=== PATIENT | female | born 1955 | race Caucasian/White ===

== ENCOUNTER 2018-11-02 16:28 | Emergency (ER) | payer BC ==
[2018-11-02] MEDS ORDERED: LEVALBUTEROL 1.25 MG/3 ML NEB ONE (18:41)
[2018-11-02] MEDS ORDERED: METHYLPREDNISOLONE 125 MG INJ ONE (18:41)
[2018-11-02 19:09] LABS: Absolute Lymphocytes (CBC) 2.1 K/uL (0.7-4.9); Absolute Monocytes 0.5 K/uL (0.1-1.3); Absolute Neutrophil 5.1 K/uL (1.8-8.0); Basophils % 0.9 % (0-1.3); Eosinophils % 2.6 % (0-4.4); Hematocrit 52.8 % (36.0-45.0); Lymphocytes % 26.4 % (15.3-44.8); MPV 10.4 fL (7.6-11.3); Monocytes % 6.2 % (3.3-12.3); RBC Red Blood Cell Count 5.63 M/uL (3.86-4.86)
[2018-11-02 19:10] LABS: ALT/SGPT 174 U/L (12-78); AST/SGOT 159 U/L (15-37); Albumin 3.4 g/dL (3.4-5.0); Alkaline Phosphatase 123 U/L (45-117); BUN Blood Urea Nitrogen 20 mg/dL (7-18); Bicarbonate 24 mmol/L (21-32); Bilirubin Direct 0.2 mg/dL (0-0.2); Bilirubin Total 0.5 mg/dL (0.2-1.0); Glucose Level 150 mg/dL (74-106); Magnesium 2.1 mg/dL (1.8-2.4); NT PRO-BNP 908 pg/mL (<125); Potassium 4.7 mmol/L (3.5-5.1); Protein, Total 8.4 g/dL (6.4-8.2); Protime INR 1.08; Sodium Level 137 mmol/L (136-145); Troponin (Emerg Dept Use Only) < 0.02 ng/mL (0.0-0.045)
--- NOTE | 2018-11-02 19:44 | RAD REPORT ---
EXAM DESCRIPTION: RADChest Pa And Lat (2 Views)11/02/2018 7:23 pm CLINICAL HISTORY: Cough COMPARISON: December 2017 FINDINGS: Extensive bilateral pulmonary opacities are unchanged having the appearance of pulmonary fibrosis. The heart is borderline enlarged
--- NOTE | 2018-11-02 20:26 | EDPHYS ---
Physician Documentation [facility] Name: Osmani Esposito Age: 63 yrs Sex: Female : 1955 Arrival Date: 11/02/2018 Time: 16:30 Bed 13 Private MD: ED Physician Matt Gonzales HPI: 11/02 18:09 This 63 yrs old Female presents to ER via Ambulatory with complaints of jmm Breathing Difficulty. 18:09 The patient has shortness of breath at rest. Onset: The symptoms/episode began/occurred jmm gradually, 2 day(s) ago. Duration: The symptoms are continuous, and are steadily getting worse. The patient's shortness of breath is aggravated by supine position, is alleviated by nothing. Associated signs and symptoms: Pertinent positives: non-productive cough, Pertinent negatives: chest pain. This is a 63 year old female with a history of COPD that presents to the ED with complaints of shortness of breath, cough. Denies fever. Denies productive cough. Patient has used albuterol at home with no relief. . Historical: - Allergies: 16:34 No Known Allergies; sv - PMHx: 16:34 COPD; sv - PSHx: 16:34 ; ankle surgery; Shoulder surgery; sv - Immunization history:: Adult Immunizations up to date. - Social history:: Smoking status: Patient uses tobacco products, smokes one pack cigarettes per day. - Ebola Screening: : Patient negative for fever greater than or equal to 101.5 degrees Fahrenheit, and additional compatible Ebola Virus Disease symptoms. ROS: 18:09 Constitutional: Negative for fever, chills, and weight loss, Cardiovascular: Negative jmm for chest pain, palpitations, and edema. 18:09 Respiratory: Positive for cough, shortness of breath, wheezing. 18:09 All other systems are negative. Exam: 18:09 Constitutional: This is a well developed, well nourished patient who is awake, alert, jmm and in no acute distress. Head/Face: atraumatic. Eyes: EOMI, no conjunctival erythema appreciated ENT: Moist Mucus Membranes Neck: Trachea midline, Supple Chest/axilla: Normal chest wall appearance and motion. Cardiovascular: Regular rate and rhythm. No edema appreciated 18:09 Back: Normal ROM Skin: General appearance color normal MS/ Extremity: Moves all extremities, no obvious deformities appreciated, no edema noted to the lower extremities Neuro: Awake and alert, normal gait Psych: Behavior is normal, Mood is normal, Patient is cooperative and pleasant 18:09 Respiratory: mild respiratory distress is noted, Respirations: labored breathing, that is mild, Breath sounds: wheezing: is heard diffusely. Vital Signs: 16:34 BP 138 / 106; Pulse 101; Resp 24; Temp 97; Pulse Ox 94% ; Weight 90.72 kg; Height 5 ft. sv 4 in. (162.56 cm); 18:00 BP 135 / 106; Pulse 102; Resp 18; Pulse Ox 98% on R/A; Pain 0/10; rb1 19:00 BP 133 / 91; Pulse 115; Resp 22; Pulse Ox 98% on R/A; rb1 20:00 BP 152 / 82; Pulse 90; Resp 20; Pulse Ox 91% on R/A; jb4 21:00 BP 148 / 80; Pulse 109; Resp 18; Pulse Ox 94% ; jb4 16:34 Body Mass Index 34.33 (90.72 kg, 162.56 cm) sv MDM: 18:09 Patient medically screened. [facility] 20:24 Data reviewed: vital signs, nurses notes. [facility] 21:00 ED course: Patient states that she feels much better in the ED. Patient's o2 stat was [facility] around 90%. I discussed with the patient the need for observation along with steroids due to this. Patient declined admission. Dr. Kovacs then evaluated the patient and also recommended admission. Patient again declined. Patient appears to make rational decisions. Patient was otherwise given strict return precautions. Patient understood. . 11/02 18:10 Order name: Basic Metabolic Panel; Complete Time: 19:19 [facility] 11/02 18:10 Order name: CBC with Diff; Complete Time: 19:19 [facility] 11/02 18:10 Order name: LFT's; Complete Time: 19:19 [facility] 11/02 18:10 Order name: Magnesium; Complete Time: 19:19 [facility] 11/02 18:10 Order name: NT PRO-BNP; Complete Time: 19:19 [facility] 11/02 18:10 Order name: PT-INR; Complete Time: 19:19 [facility] 11/02 17:16 Order name: Chest Pa And Lat (2 Views) XRAY; Complete Time: 19:51 snw 11/02 18:10 Order name: Troponin (emerg Dept Use Only); Complete Time: 19:19 [facility] 11/02 18:10 Order name: EKG; Complete Time: 18:11 [facility] 11/02 18:10 Order name: Cardiac monitoring; Complete Time: 18:44 [facility] 11/02 18:10 Order name: Flu; Complete Time: 19:19 [facility] 11/02 18:10 Order name: EKG - Nurse/Tech; Complete Time: 18:44 [facility] 11/02 18:10 Order name: IV Saline Lock; Complete Time: 18:44 [facility] 11/02 18:10 Order name: Labs collected and sent; Complete Time: 18:44 [facility] 11/02 18:10 Order name: O2 Per Protocol; Complete Time: 18:44 [facility] 11/02 18:10 Order name: O2 Sat Monitoring; Complete Time: 18:44 [facility] Administered Medications: 18:30 Drug: Xopenex (3) 1.25 mg Route: Inhalation; rb1 19:00 Follow up: Response: No adverse reaction; Marked relief of symptoms rb1 18:30 Drug: SOLU-Medrol 125 mg Route: IVP; Site: right antecubital; rb1 18:45 Follow up: Response: No adverse reaction rb1 20:59 Drug: Ipratropium Aerosol 0.5 mg Route: Inhalation; jb4 21:13 Follow up: Response: No adverse reaction jb4 Disposition: 11/02/18 21:15 Patient has left against medical advice. - Patients states they are going to Home. - Condition is Stable. Addendum: 11/04/2018 19:46 Co-signature as Attending Physician, Matt Gonzales MD. r n Signatures: Dispatcher [employer] Radha Rangel RN RN Leoncio Porras PA PA jmm Nieto, Roman, MD MD rn Barber, Rebecca, RN RN rb1 Zia Tran RN RN jb4 Corrections: (The following items were deleted from the chart) 11/02 20:39 20:26 11/02/2018 20:26 Discharged to Home. Impression: Chronic obstructive pulmonary jmm disease with (acute) exacerbation. Condition is Stable. Forms are Medication Reconciliation Form, Thank You Letter, Antibiotic Education, Prescription Opioid Use. Follow up: Private Physician; When: 2 - 3 days; Reason: Recheck today's complaints, Continuance of care, Re-evaluation by your physician. eugenio
--- NOTE | 2018-11-02 20:26 | ER ---
Nurse's Notes [facility] Name: Osmani Esposito Age: 63 yrs Sex: Female : 1955 Arrival Date: 11/02/2018 Time: 16:30 Bed 13 Private MD: Diagnosis: Presentation: 11/02 16:33 Presenting complaint: Patient states: SOB over the last couple of days and has sv increased with use on inhalers. Hx COPD. Transition of care: patient was not received from another setting of care. Onset of symptoms was October 31, 2018. Care prior to arrival: None. 16:33 Method Of Arrival: Ambulatory sv 16:33 Acuity: AMADA 3 sv 18:00 Risk Assessment: Do you want to hurt yourself or someone else? Patient reports no rb1 desire to harm self or others. Initial Sepsis Screen: Does the patient meet any 2 criteria? No. Patient's initial sepsis screen is negative. Does the patient have a suspected source of infection? No. Patient's initial sepsis screen is negative. Triage Assessment: 18:00 Respiratory: Onset: The symptoms/episode began/occurred gradually, the patient has mild rb1 shortness of breath. Historical: - Allergies: 16:34 No Known Allergies; sv - PMHx: 16:34 COPD; sv - PSHx: 16:34 ; ankle surgery; Shoulder surgery; sv - Immunization history:: Adult Immunizations up to date. - Social history:: Smoking status: Patient uses tobacco products, smokes one pack cigarettes per day. - Ebola Screening: : Patient negative for fever greater than or equal to 101.5 degrees Fahrenheit, and additional compatible Ebola Virus Disease symptoms. Screenin:00 Abuse screen: Denies threats or abuse. Nutritional screening: No deficits noted. rb1 Tuberculosis screening: No symptoms or risk factors identified. Fall Risk None identified. Assessment: 18:00 General: Appears in no apparent distress. comfortable, obese, Behavior is calm, rb1 cooperative, Denies fever. Pain: Denies pain. Neuro: Level of Consciousness is awake, alert, obeys commands, Oriented to person, place, time, situation. Cardiovascular: Reports nausea, palpitations, shortness of breath, Capillary refill < 3 seconds is brisk in bilateral fingers Rhythm is regular. Respiratory: Airway is patent Respiratory effort is even, unlabored, Respiratory pattern is regular, symmetrical. GI: Reports nausea. : No signs and/or symptoms were reported regarding the genitourinary system. Derm: Skin is pink, warm \T\ dry. 19:00 Reassessment: Patient appears in no apparent distress at this time. Patient and/or jb4 family updated on plan of care and expected duration. Pain level reassessed. Patient is alert, oriented x 3, equal unlabored respirations, skin warm/dry/pink. 20:00 Reassessment: Patient appears in no apparent distress at this time. Patient and/or jb4 family updated on plan of care and expected duration. Pain level reassessed. Patient is alert, oriented x 3, equal unlabored respirations, skin warm/dry/pink. 21:00 Reassessment: Patient appears in no apparent distress at this time. Patient and/or jb4 family updated on plan of care and expected duration. Pain level reassessed. Patient is alert, oriented x 3, equal unlabored respirations, skin warm/dry/pink. 21:10 General: PT left ED AMA with no s/s or distress or pain noted. Ambulatory A\T\Ox4, jb4 walking to the lobby to wait for here ride.. Vital Signs: 16:34 BP 138 / 106; Pulse 101; Resp 24; Temp 97; Pulse Ox 94% ; Weight 90.72 kg; Height 5 ft. sv 4 in. (162.56 cm); 18:00 BP 135 / 106; Pulse 102; Resp 18; Pulse Ox 98% on R/A; Pain 0/10; rb1 19:00 BP 133 / 91; Pulse 115; Resp 22; Pulse Ox 98% on R/A; rb1 20:00 BP 152 / 82; Pulse 90; Resp 20; Pulse Ox 91% on R/A; jb4 21:00 BP 148 / 80; Pulse 109; Resp 18; Pulse Ox 94% ; jb4 16:34 Body Mass Index 34.33 (90.72 kg, 162.56 cm) sv ED Course: 16:30 Patient arrived in ED. tw3 16:33 Triage completed. sv 16:34 Arm band placed on. sv 18:00 Patient has correct armband on for positive identification. Bed in low position. Call rb1 light in reach. Side rails up X 1. equipment monitor phototypesetting on. Pulse ox on. NIBP on. 18:02 Mickail, Leoncio, PA is PHCP. [facility] 18:02 Matt Gonzales MD is Attending Physician. [facility] 18:23 Talisha Castro, RN is Primary Nurse. [facility] 18:30 EKG done, by ED staff, reviewed by Leoncio MARTINS. [facility] 18:36 Initial lab(s) drawn, by wa, sent to lab. Inserted saline lock: 22 gauge in right 3 forearm, using aseptic technique. Blood collected. 18:39 Flu and/or RSV swab sent to lab. 3 19:00 Report given to KANCHAN Galvan. [facility] 19:24 Chest Pa And Lat (2 Views) XRAY In Process Unspecified. EDMS 21:10 No provider procedures requiring assistance completed. IV discontinued, intact, jb4 bleeding controlled. Administered Medications: 18:30 Drug: Xopenex (3) 1.25 mg Route: Inhalation; rb1 19:00 Follow up: Response: No adverse reaction; Marked relief of symptoms rb1 18:30 Drug: SOLU-Medrol 125 mg Route: IVP; Site: right antecubital; rb1 18:45 Follow up: Response: No adverse reaction rb1 20:59 Drug: Ipratropium Aerosol 0.5 mg Route: Inhalation; jb4 21:13 Follow up: Response: No adverse reaction jb Outcome: 20:26 Discharge ordered by . [facility] 21:10 AMA AMA form signed [facility] 21:10 Condition: stable 21:10 Discharge instructions given to patient, Instructed on discharge instructions, the need for admit, medication usage, Demonstrated understanding of instructions, medications, Prescriptions given X 2. 21:15 Patient left the ED. jb4 Signatures: Dispatcher [employer] EDMS Radha Moreno, RN Leoncio Paulson PA PA [facility] Talisha Castro, RN RN Zia Gorman RN RN jb4 Lo Wagner Angeline Torre [facility] Corrections: (The following items were deleted from the chart) 16:35 16:34 BP 138 / 106; Pulse 101bpm; Resp 24bpm; Pulse Ox 90%; Temp 97F; 90.72 kg; Height sv 5 ft. 4 in.; BMI: 34.3; sv
[2018-11-02] MEDS ORDERED: IPRATROPIUM BROM 0.5MG/2.5ML ONE (21:05)
[2018-11-02 21:21] VITALS: TEMP 97
[2018-11-02 21:27] VITALS: BP 148/80; O2SAT 94
--- NOTE | 2018-11-03 07:44 | EKG ---
Test Date: 2018-11-02 Test Time: 18:24:32 Convertible Power Shovel Operator: SUNITA MEASUREMENT RESULTS: Intervals: Rate: 80 MI: 132 QRSD: 66 QT: 344 QTc: 396 [place]: P: 28 MI: 132 QRS: 62 T: 38 INTERPRETIVE STATEMENTS: Sinus rhythm with fusion complexes Possible Left atrial enlargement T wave abnormality, consider anterior ischemia Abnormal ECG Compared to ECG 04/07/2013 05:05:21 Fusion complex(es) now present T-wave abnormality now present Possible ischemia now present ST (T wave) deviation no longer present Electronically Signed On 11-03-18 07:43:33 CDT by Joseph Callahan
== END 2018-11-02 21:15 | disposition left against medical advice (07) ==
LOC: ER 16:28
DX: R05 Cough (principal); J44.9 Chronic obstructive pulmonary disease, unspecified; F17.210 Nicotine dependence, cigarettes, uncomplicated
CPT/HCPCS: 36415; 71046; 80048; 80076; 83735; 83880; 84484; 85025; 85610; 87804; 93005; 96374; 99285; J2930

== ENCOUNTER 2019-07-14 02:44 | Emergency (ER) | payer BC ==
[2019-07-14] MEDS ORDERED: NA CHLORIDE 0.9% 2,000 ML ONE (03:36)
--- NOTE | 2019-07-14 03:49 | ER ---
Nurse's Notes [facility] Name: Osmani Esposito Age: 63 yrs Sex: Female : 1955 Arrival Date: 07/14/2019 Time: 03:03 Bed 15 Private MD: Diagnosis: Idiopathic pulmonary fibrosis;Hypoxemia;Cardiomegaly;Chronic obstructive pulmonary disease with (acute) exacerbation;Hypomagnesemia Presentation: 07/14 03:05 Presenting complaint: EMS states: patient woke up this morning she started to cough and rr5 having hard time to breath. she has history of pulmonary fibrosis. wearing oxygen at home when she check her O2 sat around 50% hooked to oxygen and went up to 60 then 80%. 03:05 Transition of care: patient was not received from another setting of care. Onset of rr5 symptoms was July 14, 2019. Risk Assessment: Do you want to hurt yourself or someone else? Patient reports no desire to harm self or others. Initial Sepsis Screen: Does the patient meet any 2 criteria? RR > 20 per min. HR > 90 bpm. Yes Does the patient have a suspected source of infection? Yes: Productive cough/pneumonia Note EMS stated combivent nebulization rendered by the patient as her patients medication. lungs are clear HR 148 bpm, patient feels hot flushed face noted. the cough started last week with phlegm. hooked to non rebreather mask went up to 98% for the BP 89/56mmHg started IVF. Care prior to arrival: Medication(s) given: Normal saline infusion, 2 liters ongoing from EMS. 03:05 Method Of Arrival: EMS: [facility] rr5 03:05 Acuity: AMADA 2 rr5 Triage Assessment: 03:05 Respiratory: Onset: The symptoms/episode began/occurred this morning, the patient has rr5 moderate shortness of breath. 03:05 General: Appears in no apparent distress. Behavior is calm, cooperative, appropriate rr5 for age. Respiratory: use of accessory muscle noted. Historical: - Allergies: 03:05 No Known Allergies; rr5 - Home Meds: 03:05 Hydrocodone-Acetaminophen Oral [Active]; Zoloft Oral [Active]; Combivent Inhl [Active]; rr5 Albuterol Inhl [Active]; - PMHx: 03:05 COPD; Hepatitis; pulmonary fibrosis; Anxiety; rr5 - PSHx: 03:05 heel surgery; ankle surgery; shoulder surgery; ; rr5 - Immunization history:: Adult Immunizations up to date. - Social history:: Smoking status: Patient/guardian denies using tobacco, the patient reports quitting approximately 2 years ago, Patient/guardian denies using alcohol, street drugs. - Ebola Screening: : Patient negative for fever greater than or equal to 101.5 degrees Fahrenheit, and additional compatible Ebola Virus Disease symptoms Patient denies exposure to infectious person Patient denies travel to an Ebola-affected area in the 21 days before illness onset. - Family history:: not pertinent. Screenin:23 Abuse screen: Denies threats or abuse. Denies injuries from another. Nutritional rr5 screening: No deficits noted. Tuberculosis screening: No symptoms or risk factors identified. Fall Risk IV access (20 points). Total [place] Fall Scale indicates No Risk (0-24 pts). Assessment: 03:05 General: Appears in no apparent distress. comfortable, Behavior is calm, cooperative, rr5 appropriate for age. Pain: Denies pain. Neuro: Level of Consciousness is awake, alert, obeys commands, Oriented to person, place, time, situation. Cardiovascular: Capillary refill < 3 seconds Patient's skin is warm and dry. Rhythm is sinus tachycardia. Respiratory: Reports shortness of breath cough that is productive, Airway is patent Respiratory effort is even, Respiratory pattern is tachypnea low oxygen saturation. Breath sounds are clear. 03:05 GI: No signs and/or symptoms were reported involving the gastrointestinal system. : rr5 Reports incontinence. EENT: No signs and/or symptoms were reported regarding the EENT system. Derm: Skin is intact, is healthy with good turgor, Skin temperature is warm. Musculoskeletal: Circulation, motion, and sensation intact. Capillary refill < 3 seconds. 03:44 Reassessment: Patient appears in no apparent distress at this time. Patient is alert, rr5 oriented x 3, equal unlabored respirations, skin warm/dry/pink. chatting with her station cook not in distress. Patient states feeling better. Patient states symptoms have improved. 07:15 Reassessment: Patient appears in no apparent distress at this time. Patient is alert, sg oriented x 3, equal unlabored respirations, skin warm/dry/pink. pt to be transferred to [facility], awaiting CT scan and ABG results at this time, PARTS DATA WRITER at bedside with pt for ABG draw. 07:43 Reassessment: PARTS DATA WRITER at bedside at this time, educating on BiPap, pt awaiting transfer, sg awaiting CT scan at this time. reports is ok to call pt report for transfer without having CT scan done at this time. Vital Signs: 03:05 BP 117 / 74; Pulse 133; Resp 28; Temp 98.5; Pulse Ox 96% on 15% Non-rebreather mask; rr5 Weight 113.4 kg; Height 5 ft. 4 in. (162.56 cm); Pain 0/10; 03:42 BP 119 / 78; Pulse 105; Resp 25; Pulse Ox 96% on 15% Non-rebreather mask; rr5 04:30 BP 115 / 62; Pulse 118; Resp 29; Pulse Ox 95% on 12% Non-rebreather mask; rr5 05:00 BP 105 / 62; Pulse 113; Resp 24; Pulse Ox 94% on 10% Non-rebreather mask; rr5 08:15 BP 115 / 82; Pulse 118; Resp 22; Temp 98.5; Pulse Ox 86% on R/A; Pain 0/10; sg 08:16 Pulse Ox 92% on 50% BiPAP; sg 03:05 Body Mass Index 42.91 (113.40 kg, 162.56 cm) rr5 ED Course: 03:03 Patient arrived in ED. cl3 03:05 Maintain EMS IV. Dressing intact. Good blood return noted. Site clean \T\ dry. Gauge \T\ rr 5 site: G 18 at right AC, G 20 at left hand. 03:05 Oxygen administration via non-rebreather mask \T\ 15L/min Response to oxygen therapy: rr5 symptoms improved. 03:07 Alec Hare, RN is Primary Nurse. rr5 03:08 Patient has correct armband on for positive identification. Placed in gown. Bed in low rr5 position. Call light in reach. Side rails up X2. crew boat operator on. Pulse ox on. NIBP on. 03:08 Door closed. Warm blanket given. Head of bed elevated. rr5 03:10 Tong Guthrie MD is Attending Physician. [facility] 03:10 Arm band placed on. rr5 03:19 Triage completed. rr5 03:27 Tong Guthrie MD is Attending Physician. aa1 03:46 Dillon Valle MD is Hospitalizing Provider. [facility] 03:54 Chest Single View XRAY In Process Unspecified. EDMS 04:34 Primary Nurse role handed off by Alec Hare, KANCHAN mw2 04:40 Alec Hare RN is Primary Nurse. rr5 05:29 No provider procedures requiring assistance completed. Patient admitted, IV remains in rr5 place. intact, No redness/swelling at site. 06:[address] Guthrie with Sabrina from the [facility]. eb 07:10 Primary Nurse role handed off by Alec Hare, KANCHAN sg 07:10 Benny Maher RN is Primary Nurse. sg 07:[address] Neves the hospitalist online marketing coordinator for [facility] with Dr. Guthrie for patient eb transfer consultation. 07:32 administrative approval given to Dr. Guthrie by Sabrina Crum / Patient has been eb accepted to [facility] Bed 931 / Yemi Arcos wallace accepted the patient in transfer. report to be called to [phone]. 07:49 Patient moved to [place] via stretcher. sg Administered Medications: Discontinued: NS 0.9% (30 ml/kg) 30 ml/kg IV at bolus once; Sepsis Protocol 03:05 Drug: NS 0.9% (30 ml/kg) 30 ml/kg Route: IV; Rate: bolus; Site: right antecubital; rr5 05:26 Follow up: Response: No adverse reaction; IV Status: Order to discontinue infusion; IV rr5 Intake: 1800ml 03:51 Drug: SOLU-Medrol 125 mg Route: IVP; Site: right antecubital; rr5 04:50 Follow up: Response: No adverse reaction rr5 03:55 Dru mg of (LevaQUIN 750 mg, NS 0.9% 150 ml) Volume: 150 ml; Route: IVPB; Infused rr5 Over: 90 mins; Site: right antecubital; 05:15 Follow up: Response: No adverse reaction; IV Status: Completed infusion; IV Intake: rr5 150ml 03:57 Drug: Xopenex 3.75 mg Route: Inhalation; rr5 05:00 Follow up: Response: No adverse reaction; Marked relief of symptoms rr5 03:57 Drug: AtroVENT Aerosol 0.5 mg Route: Inhalation; rr5 05:00 Follow up: Response: No adverse reaction; Marked relief of symptoms rr5 05:15 Drug: Lasix 40 mg Route: IVP; Site: right antecubital; rr5 06:15 Follow up: Response: No adverse reaction rr5 05:17 Drug: Magnesium Sulfate 2 grams Route: IVPB; Infused Over: 2 hrs; Site: right rr5 antecubital; 06:50 Follow up: Response: No adverse reaction; IV Status: Completed infusion; IV Intake: [id number] Intake: 05:15 IV: 150ml; Total: 150ml. rr5 05:26 IV: 1800ml; Total: 1950ml. rr5 06:50 IV: 50ml; Total: 2000ml. rr5 Outcome: 03:49 Decision to Hospitalize by Provider. [facility] 04:31 Patient left the ED. mw2 05:29 Instructed on the need for admit. rr5 05:29 Admitted to ER Hold. Please see [facility] for further documentation. rr5 05:29 Condition: stable 07:10 ER care complete, transfer ordered by . [place] 08:37 Patient left the ED. sg Signatures: Dispatcher [employer] Benny Stephens RN RN sg Michelle Mcgraw RN RN aa1 Tong Guthrie MD MD cha Westbrook, MyKena mw2 Sabrina Alan Raymond, RN RN rr5 Kailey So cl3
--- NOTE | 2019-07-14 03:50 | EDPHYS ---
Physician Documentation [facility] Name: Osmani Esposito Age: 63 yrs Sex: Female : 1955 Arrival Date: 07/14/2019 Time: 03:03 Bed 15 Private MD: ED Physician oTng Guthrie HPI: 07/14 03:43 This 63 yrs old Female presents to ER via EMS with complaints of Shortness Of armando Breath. 03:43 The patient has shortness of breath at rest, with light activity. Onset: The armando symptoms/episode began/occurred just prior to arrival, this morning. Duration: The symptoms are continuous, and are steadily getting worse. The patient's shortness of breath has no apparent modifying factors. Associated signs and symptoms: The patient has no apparent associated signs or symptoms. The patient has experienced similar episodes in the past, multiple times. Historical: - Allergies: 03:05 No Known Allergies; rr5 - Home Meds: 03:05 Hydrocodone-Acetaminophen Oral [Active]; Zoloft Oral [Active]; Combivent Inhl [Active]; rr5 Albuterol Inhl [Active]; - PMHx: 03:05 COPD; Hepatitis; pulmonary fibrosis; Anxiety; rr5 - PSHx: 03:05 heel surgery; ankle surgery; shoulder surgery; ; rr5 - Immunization history:: Adult Immunizations up to date. - Social history:: Smoking status: Patient/guardian denies using tobacco, the patient reports quitting approximately 2 years ago, Patient/guardian denies using alcohol, street drugs. - Ebola Screening: : Patient negative for fever greater than or equal to 101.5 degrees Fahrenheit, and additional compatible Ebola Virus Disease symptoms Patient denies exposure to infectious person Patient denies travel to an Ebola-affected area in the 21 days before illness onset. - Family history:: not pertinent. ROS: 03:43 Constitutional: Negative for fever, chills, and weight loss, Eyes: Negative for injury, armando pain, redness, and discharge, ENT: Negative for injury, pain, and discharge, Neck: Negative for injury, pain, and swelling, Cardiovascular: Negative for chest pain, palpitations, and edema, Abdomen/GI: Negative for abdominal pain, nausea, vomiting, diarrhea, and constipation, Back: Negative for injury and pain, : Negative for injury, bleeding, discharge, and swelling, MS/Extremity: Negative for injury and deformity, Skin: Negative for injury, rash, and discoloration, Neuro: Negative for headache, weakness, numbness, tingling, and seizure, Psych: Negative for depression, anxiety, suicide ideation, homicidal ideation, and hallucinations, Allergy/Immunology: Negative for hives, rash, and allergies, Endocrine: Negative for neck swelling, polydipsia, polyuria, polyphagia, and marked weight changes, Hematologic/Lymphatic: Negative for swollen nodes, abnormal bleeding, and unusual bruising. 03:43 Respiratory: Positive for cough, shortness of breath, wheezing, expiratory. Exam: 03:43 Constitutional: This is a well developed, well nourished patient who is awake, alert, armando and in no acute distress. Head/Face: Normocephalic, atraumatic. Eyes: Pupils equal round and reactive to light, extra-ocular motions intact. Lids and lashes normal. Conjunctiva and sclera are non-icteric and not injected. Cornea within normal limits. Periorbital areas with no swelling, redness, or edema. ENT: Nares patent. No nasal discharge, no septal abnormalities noted. Tympanic membranes are normal and external auditory canals are clear. Oropharynx with no redness, swelling, or masses, exudates, or evidence of obstruction, uvula midline. Mucous membranes moist. Neck: Trachea midline, no thyromegaly or masses palpated, and no cervical lymphadenopathy. Supple, full range of motion without nuchal rigidity, or vertebral point tenderness. No Meningismus. Chest/axilla: Normal chest wall appearance and motion. Nontender with no deformity. No lesions are appreciated. Abdomen/GI: Soft, non-tender, with normal bowel sounds. No distension or tympany. No guarding or rebound. No evidence of tenderness throughout. Back: No spinal tenderness. No costovertebral tenderness. Full range of motion. Female : Normal external genitalia. Skin: Warm, dry with normal turgor. Normal color with no rashes, no lesions, and no evidence of cellulitis. MS/ Extremity: Pulses equal, no cyanosis. Neurovascular intact. Full, normal range of motion. Neuro: Awake and alert, GCS 15, oriented to person, place, time, and situation. Cranial nerves II-XII grossly intact. Motor strength 5/5 in all extremities. Sensory grossly intact. Cerebellar exam normal. Normal gait. Psych: Awake, alert, with orientation to person, place and time. Behavior, mood, and affect are within normal limits. 03:43 Cardiovascular: Rate: tachycardic, Rhythm: regular, Pulses: Pulses are 4+ in bilateral radial, brachial, femoral, popliteal, posterior tibial and and dorsalis pedis arteries.. Heart sounds: normal, Edema: is not appreciated, JVD: is not appreciated. Vital Signs: 03:05 BP 117 / 74; Pulse 133; Resp 28; Temp 98.5; Pulse Ox 96% on 15% Non-rebreather mask; rr5 Weight 113.4 kg; Height 5 ft. 4 in. (162.56 cm); Pain 0/10; 03:42 BP 119 / 78; Pulse 105; Resp 25; Pulse Ox 96% on 15% Non-rebreather mask; rr5 04:30 BP 115 / 62; Pulse 118; Resp 29; Pulse Ox 95% on 12% Non-rebreather mask; rr5 05:00 BP 105 / 62; Pulse 113; Resp 24; Pulse Ox 94% on 10% Non-rebreather mask; rr5 08:15 BP 115 / 82; Pulse 118; Resp 22; Temp 98.5; Pulse Ox 86% on R/A; Pain 0/10; sg 08:16 Pulse Ox 92% on 50% BiPAP; sg 03:05 Body Mass Index 42.91 (113.40 kg, 162.56 cm) rr5 MDM: 03:10 Patient medically screened. armando 03:10 Patient medically screened. armando 03:12 Patient medically screened. armando 03:26 Patient medically screened. armando 03:44 Data reviewed: vital signs, nurses notes, lab test result(s), EKG, radiologic studies, armando plain films. 07/14 03:10 Order name: Basic Metabolic Panel rr5 07/14 03:10 Order name: Blood Culture Adult (2) rr5 07/14 03:10 Order name: CBC with Diff; Complete Time: 04:11 rr5 07/14 03:10 Order name: Ckmb; Complete Time: 04:36 rr5 07/14 03:10 Order name: CPK; Complete Time: 04:36 rr5 07/14 03:10 Order name: Lactate; Complete Time: 04:36 rr5 12/21 03:10 Order name: LFT's; Complete Time: 04:36 rr5 07/14 03:10 Order name: Lipase; Complete Time: 04:36 rr5 07/14 03:10 Order name: Procalcitonin; Complete Time: 06:50 rr5 07/14 03:10 Order name: Protime (+inr); Complete Time: 04:36 rr5 07/14 03:10 Order name: Ptt, Activated; Complete Time: 04:36 rr5 07/14 03:10 Order name: Troponin (emerg Dept Use Only); Complete Time: 04:36 rr5 07/14 03:10 Order name: Urine Microscopic Only; Complete Time: 06:50 rr5 07/14 03:11 Order name: Basic Metabolic Panel; Complete Time: 04:36 EDMA 07/14 03:11 Order name: Blood Culture EDMA 07/14 03:43 Order name: Magnesium; Complete Time: 04:36 [facility] 07/14 03:43 Order name: NT PRO-BNP; Complete Time: 04:36 [facility] 07/14 03:44 Order name: Glucose, Ancillary Testing; Complete Time: 03:46 EDMA 07/14 04:25 Order name: CBC with Automated Diff EDMS 07/14 04:25 Order name: Comprehensive Metabolic Panel EDMA 07/14 04:25 Order name: Magnesium; Complete Time: 06:50 EDMA 07/14 04:25 Order name: Lactate EDMA 07/14 04:25 Order name: Lipid Profile EDMA 07/14 04:25 Order name: NT PRO-BNP EDMA 07/14 04:25 Order name: Troponin I EDMA 07/14 04:25 Order name: Troponin I; Complete Time: 06:50 EDMA 07/14 04:25 Order name: Troponin I EDMA 07/14 03:10 Order name: Chest Single View XRAY rr5 07/14 03:10 Order name: Accucheck; Complete Time: 03:32 rr5 07/14 03:10 Order name: Cardiac monitoring; Complete Time: 03:28 rr5 07/14 03:10 Order name: EKG - Nurse/Tech; Complete Time: 03:31 rr5 07/14 03:10 Order name: IV Saline Lock - Large Bore; Complete Time: 03:31 rr5 07/14 03:10 Order name: Labs collected and sent; Complete Time: 03:31 rr5 07/14 03:10 Order name: O2 Per Protocol; Complete Time: 03:31 rr 07/14 03:10 Order name: O2 Sat Monitoring; Complete Time: 03:31 rr 07/14 03:10 Order name: Urine Dipstick-Ancillary (obtain specimen); Complete Time: 07:27 [facility] 07/14 03:43 Order name: EKG; Complete Time: 03:43 [facility] 07/14 03:43 Order name: IV Saline Lock; Complete Time: 03:45 [facility] 07/14 04:24 Order name: CONS Physician Consult [facility] 07/14 04:24 Order name: Heart Healthy EDMA 07/14 05:46 Order name: Urine Dipstick--Ancillary (enter results) [facility] 07/14 06:01 Order name: Urine Dipstick-Ancillary; Complete Time: 06:50 [facility] 07/14 06:49 Order name: ABG [facility] 07/14 06:50 Order name: CT Chest For PE Angio [facility] Administered Medications: Discontinued: NS 0.9% (30 ml/kg) 30 ml/kg IV at bolus once; Sepsis Protocol 03:05 Drug: NS 0.9% (30 ml/kg) 30 ml/kg Route: IV; Rate: bolus; Site: right antecubital; rr5 05:26 Follow up: Response: No adverse reaction; IV Status: Order to discontinue infusion; IV rr5 Intake: 1800ml 03:51 Drug: SOLU-Medrol 125 mg Route: IVP; Site: right antecubital; rr5 04:50 Follow up: Response: No adverse reaction rr5 03:55 Dru mg of (LevaQUIN 750 mg, NS 0.9% 150 ml) Volume: 150 ml; Route: IVPB; Infused rr5 Over: 90 mins; Site: right antecubital; 05:15 Follow up: Response: No adverse reaction; IV Status: Completed infusion; IV Intake: rr5 150ml 03:57 Drug: Xopenex 3.75 mg Route: Inhalation; rr5 05:00 Follow up: Response: No adverse reaction; Marked relief of symptoms rr5 03:57 Drug: AtroVENT Aerosol 0.5 mg Route: Inhalation; rr5 05:00 Follow up: Response: No adverse reaction; Marked relief of symptoms rr5 05:15 Drug: Lasix 40 mg Route: IVP; Site: right antecubital; rr5 06:15 Follow up: Response: No adverse reaction rr5 05:17 Drug: Magnesium Sulfate 2 grams Route: IVPB; Infused Over: 2 hrs; Site: right rr5 antecubital; 06:50 Follow up: Response: No adverse reaction; IV Status: Completed infusion; IV Intake: [id number] Disposition: 07/14/19 07:10 Transfer ordered to [facility]. Diagnosis are Idiopathic pulmonary fibrosis, Hypoxemia, Cardiomegaly, Chronic obstructive pulmonary disease with (acute) exacerbation, Hypomagnesemia. - Reason for transfer: Higher level of care. - Accepting physician is to dr michoacano kline. - Condition is Fair. - Problem is new. - Symptoms have improved. Signatures: Dispatcher [employer] EDMS Sia Lizarraga RN RN [facility] RN sg Anderson, Corey, MD MD cha Westbrook, MyKena mw2 Alec Hare RN RN rr5 Corrections: (The following items were deleted from the chart) 04:31 03:49 Hospitalization Ordered by Dillon Valle MD for Inpatient Admission. Preliminary mw2 diagnosis is Idiopathic pulmonary fibrosis; Hypoxemia; Acute upper respiratory infection, unspecified; Chronic obstructive pulmonary disease with (acute) exacerbation. Bed requested for Telemetry/MedSurg (Inpatient). Status is Inpatient Admission. Condition is Fair. Problem is new. Symptoms have improved. UTI on Admission? No. armando 04:41 04:31 07/14/2019 03:49 Hospitalization Ordered by Dillon Valle MD for Inpatient [facility] Admission. Preliminary diagnosis is Idiopathic pulmonary fibrosis; Hypoxemia; Acute upper respiratory infection, unspecified; Chronic obstructive pulmonary disease with (acute) exacerbation. Bed requested for [facility] ER HOLD. Status is Inpatient Admission. Condition is Fair. Problem is new. Symptoms have improved. UTI on Admission? No. mw2 05:21 04:41 07/14/2019 03:49 Hospitalization Ordered by Dillon Valle MD for Inpatient Admission. Preliminary diagnosis is Idiopathic pulmonary fibrosis; Hypoxemia; Acute upper respiratory infection, unspecified; Chronic obstructive pulmonary disease with (acute) exacerbation; Hypomagnesemia. Bed requested for [facility] ER HOLD. Status is Inpatient Admission. Condition is Fair. Problem is new. Symptoms have improved. UTI on Admission? No. armando 06:10 05:21 07/14/2019 03:49 Hospitalization Ordered by Dillon Valle MD for Inpatient [facility] Admission. Preliminary diagnosis is Idiopathic pulmonary fibrosis; Hypoxemia; Acute upper respiratory infection, unspecified; Chronic obstructive pulmonary disease with (acute) exacerbation; Hypomagnesemia. Bed requested for Telemetry/MedSurg (Inpatient). Status is Inpatient Admission. Condition is Fair. Problem is new. Symptoms have improved. UTI on Admission? No. 06:49 06:10 07/14/2019 03:49 Hospitalization Ordered by Dillon Valle MD for Inpatient Admission. Preliminary diagnosis is Idiopathic pulmonary fibrosis; Hypoxemia; Acute upper respiratory infection, unspecified; Chronic obstructive pulmonary disease with (acute) exacerbation; Hypomagnesemia. Bed requested for Telemetry/MedSurg (Inpatient). Status is Inpatient Admission. Condition is Fair. Problem is new. Symptoms have improved. UTI on Admission? No. armando 07:08 06:49 07/14/2019 03:49 Hospitalization Ordered by Dillon Valle MD for Inpatient armando Admission. Preliminary diagnosis is Idiopathic pulmonary fibrosis; Hypoxemia; Acute upper respiratory infection, unspecified; Chronic obstructive pulmonary disease with (acute) exacerbation; Hypomagnesemia. Bed requested for Intensive Care Unit. Status is Inpatient Admission. Condition is Fair. Problem is new. Symptoms have improved. UTI on Admission? No. 07:32 07:10 07/14/2019 07:10 Transfer ordered to [facility]. Diagnosis is armando Idiopathic pulmonary fibrosis; Hypoxemia; Cardiomegaly; Chronic obstructive pulmonary disease with (acute) exacerbation. Reason for transfer: Higher level of care. Accepting physician is to dr michoacano kline. Condition is Fair. Problem is new. Symptoms have improved. armando 08:37 07:32 07/14/2019 07:10 Transfer ordered to [facility]. Diagnosis is sg Idiopathic pulmonary fibrosis; Hypoxemia; Cardiomegaly; Chronic obstructive pulmonary disease with (acute) exacerbation; Hypomagnesemia. Reason for transfer: Higher level of care. Accepting physician is to dr michoacano kline. Condition is Fair. Problem is new. Symptoms have improved. [facility]
[2019-07-14] MEDS ORDERED: Levofloxacin 750mg IV 750 MG/150 ML BAG IV ONE (03:51)
[2019-07-14] MEDS ORDERED: LEVALBUTEROL 1.25 MG/3 ML NEB ONE (03:51)
[2019-07-14] MEDS ORDERED: IPRATROPIUM BROM 0.5MG/2.5ML ONE (03:51)
[2019-07-14] MEDS ORDERED: METHYLPREDNISOLONE 125 MG INJ ONE (03:51)
[2019-07-14 03:59] LABS: Absolute Lymphocytes (CBC) 1.3 K/uL (0.7-4.9); Basophils % 0.7 % (0-1.3); Hematocrit 46.7 % (36.0-45.0); Lymphocytes % 19.9 % (15.3-44.8); MPV 9.7 fL (7.6-11.3); RBC Red Blood Cell Count 4.83 M/uL (3.86-4.86)
[2019-07-14] MEDS ORDERED: ONDANSETRON 4 MG/2 ML VIAL IV PRN (04:16)
[2019-07-14] MEDS ORDERED: ACETAMINOPHEN 500 MG TAB PO PRN (04:16)
[2019-07-14 04:21] LABS: Magnesium 1.7 mg/dL (1.8-2.4)
[2019-07-14 04:24] LABS: Protime INR 1.07
[2019-07-14 04:30] LABS: ALT/SGPT 59 U/L (12-78); AST/SGOT 47 U/L (15-37); Albumin 2.7 g/dL (3.4-5.0); Alkaline Phosphatase 115 U/L (45-117); BUN Blood Urea Nitrogen 14 mg/dL (7-18); Bicarbonate 25 mmol/L (21-32); Bilirubin Direct 0.1 mg/dL (0-0.2); Bilirubin Total 0.4 mg/dL (0.2-1.0); CKMB Creatine Kinase MB 3.1 ng/mL (0.3-3.6); Creatine Phosphokinase 60 U/L (26-192); Glucose Level 136 mg/dL (74-106); Lipase 67 U/L (73-393); Protein, Total 6.8 g/dL (6.4-8.2); Sodium Level 140 mmol/L (136-145); Troponin (Emerg Dept Use Only) < 0.02 ng/mL (0.0-0.045)
[2019-07-14] MEDS ORDERED: NA CHLORIDE 0.9% 1,000 ML IV SCH (05:00)
[2019-07-14] MEDS ORDERED: AZITHROMYCIN IV 500 MG in NA CHLORIDE 0.9% 250 ML IVPB SCH (05:00)
[2019-07-14] MEDS ORDERED: Magnesium Sulfate 2gm IVPB 2 G/50 ML BAG IV ONE (05:10)
[2019-07-14] MEDS ORDERED: FUROSEMIDE 40 MG/4 ML VIAL ONE (05:10)
[2019-07-14 06:01] LABS: Urine Blood NEGATIVE (NEG); Urine Glucose NEGATIVE (NEG); Urine Protein NEGATIVE (NEG); Urine pH 5.5 (5.0-7.0)
[2019-07-14] MEDS ORDERED: AZITHROMYCIN 500 MG INJ IVPB ONE (06:09)
[2019-07-14] MEDS ORDERED: NA CHLORIDE 0.9% 250 ML ONE (06:09)
[2019-07-14 06:13] LABS: Magnesium 2.3 mg/dL (1.8-2.4); Troponin I < 0.02 ng/mL (0.0-0.045)
[2019-07-14 06:16] LABS: Urine Bacteria <20 /HPF (<20); Urine Culture Reflex Order NOT NEEDED; Urine Mucus 2+ /HPF (NONE SEEN); Urine RBC <5 /HPF (NONE SEEN)
[2019-07-14] MEDS ORDERED: ONDANSETRON 4 MG/2 ML VIAL ONE (06:24)
[2019-07-14 06:32] VITALS: BMI 42.7
[2019-07-14 07:21] LABS: Blood Gas Oxyhemoglobin 61.9 % (94-97)
[2019-07-14] MEDS ORDERED: IPRATROPIUM BROM 0.5MG/2.5ML NEB SCH (08:00)
[2019-07-14] MEDS ORDERED: ALBUTEROL 2.5 MG/3 ML NEB SOL NEB SCH (08:00)
--- NOTE | 2019-07-14 08:47 | RAD REPORT ---
EXAM DESCRIPTION: CT - Chest For Pe Angio - 07/14/2019 8:22 am CLINICAL HISTORY: cough COMPARISON: December 2018 TECHNIQUE: Dynamically enhanced axial 3 mm thick images of the chest were obtained during administra tion of <100> mL Isovue 370 IV contrast. Coronal and oblique reconstruction images were generated and reviewed. Exam utilizes a protocol for optimal evaluation of pulmonary arterial tree. Maximum intensity projections 3D imaging was utilized All CT scans are performed using dose optimization technique as appropriate and may include automated exposure control or mA/KV adjustment according to patient size. FINDINGS: A pulmonary embolus is not seen. A thoracic aortic aneurysm is not noted. The main pulmonary artery is enlarged A pleural effusion is not seen. A small pericardial effusion is not seen. Marked bilateral pulmonary fibrosis. Bilateral diffuse ground-glass opacities IMPRESSION: Negative for a pulmonary embolism. Enlarged pulmonary artery indicative of pulmonary arterial hypertension Marked pulmonary fibrosis Bilateral ground-glass opacities indicative of a superimposed alveolitis
--- NOTE | 2019-07-14 08:49 | P.CNS ---
Date of Consult: 07/14/19 Reason for Consult: Shortness of breath/respiratory does Requesting Physician: Tong Guthrie Chief Complaint: Respiratory distress History of Present Illness: Patient is a 63-year-old female came to the hospital with difficulty breathing. Patient has a history of idiopathic pulmonary fibrosis. She is not wearing oxygen regularly but over the last couple of days she has had it on all the time. She has started up to 6 L daily. She was severely short of breath and had her daughter bring her to the hospital for further evaluation. She has been following up with a physician in [place]. She is on the transplant list. Her condition is severe and it requires ICU admission. Before sling we do not have any ICU nurses working this week and so patient will need to get transfer to ICU facility. Allergies No Known Allergies Allergy (Verified 07/14/19 06:31) Home Medications: Rivaroxaban [Xarelto*] 20 mg PO DAILY #0 tablet 01/28/13 Sotalol HCl [Betapace*] 80 mg PO BID #60 tab 01/28/13 - Past Medical/Surgical History Diabetic: No -: hep c -: pulmonary fibrosis -: anxiety -: copd -: ankle, heel sx -: c section - Social History Smoking Status: Current every day smoker Alcohol use: Yes CD- Drugs: No Caffeine use: Yes Place of Residence: Home Physical Examination Temp Pulse Resp BP Pulse Ox 98 F 110 H 29 H 96/74 91 07/14/19 06:00 07/14/19 06:00 07/14/19 06:00 07/14/19 06:00 07/14/19 06:00 Laboratory Data (last 24 hrs) 07/14/19 03:24: Magnesium 1.7 L 07/14/19 03:24: PT 12.6 H, INR 1.07, APTT 31.1 07/14/19 03:24: WBC 6.4, Hgb 15.4 H, Hct 46.7 H, Plt Count 173 07/14/19 03:24: Sodium 140, Potassium 4.0, BUN 14, Creatinine 0.98, Glucose 136 H, Total Bilirubin 0.4, AST 47 H, ALT 59, Alkaline Phosphatase 115, Lipase 67 L
--- NOTE | 2019-07-14 08:49 | RAD REPORT ---
EXAM DESCRIPTION: Marilyn Single View07/14/2019 3:52 am CLINICAL HISTORY: cough COMPARISON: October 2014 FINDINGS: Heart is mildly enlarged Diffuse bilateral pulmonary opacities have worsened Main pulmonary artery is prominent atrophic pulmonary arterial hypertension IMPRESSION: Worsening in diffuse bilateral pulmonary opacities represent either pneumonitis, pulmona ry edema or pneumonia superimposed over extensive pulmonary fibrosis
[2019-07-14] MEDS ORDERED: CEFTRIAXONE 1 GM/NS 50 ML 1 GM/50 ML BAG IV SCH (09:00)
[2019-07-14] MEDS ORDERED: ENOXAPARIN 40 MG/0.4 ML SQ SCH (09:00)
[2019-07-14] MEDS ORDERED: CEFTRIAXONE/SWI 1gm 1 GM/10 ML SYR IVP SCH (09:00)
[2019-07-14] MEDS ORDERED: INFLUENZA VACCINE (for 3y+) 0.5 ML DOSE IMVAC ONE (09:00)
[2019-07-14] MEDS ORDERED: METHYLPREDNISOLONE 125 MG INJ IV SCH (12:00)
--- NOTE | 2019-07-14 15:31 | EKG ---
Test Date: 2019-07-14 Test Time: 03:10:09 Stock Patcher: MAXIM MEASUREMENT RESULTS: Intervals: Rate: 118 OR: 136 QRSD: 82 QT: 312 QTc: 437 [place]: P: 20 OR: 136 QRS: 54 T: 8 INTERPRETIVE STATEMENTS: Sinus tachycardia Possible Left atrial enlargement Nonspecific ST and T wave abnormality Abnormal ECG Compared to ECG 11/02/2018 18:24:32 ST (T wave) deviation now present Sinus rhythm no longer present Fusion complex(es) no longer present T-wave abnormality no longer present Possible ischemia no longer present Electronically Signed On 07-14-19 15:30:37 DIE MACHINE OPERATOR by Khoa Rubio
[2019-07-14 15:57] VITALS: BP 115/82; TEMP 98.5
[2019-07-14 15:58] VITALS: O2SAT 92
== END 2019-07-14 08:37 | disposition short-term general hospital (02) ==
LOC: ER 02:44 → ERHOLD 04:23 → UNDOADMIN 04:23
DX: J84.112 Idiopathic pulmonary fibrosis (principal); J44.1 Chronic obstructive pulmonary disease with (acute) exacerbation; I51.7 Cardiomegaly; R09.02 Hypoxemia
CPT/HCPCS: 96365; 96367; 93005; 87040 ×2; 85025; 80048; 36415; 83735 ×2; 82550; 85610; 82947; 80076; 83605; 85730; 84484 ×2; 82553; 83690; 84145; 83880; 71275; 71045; 82805; 94760; 94660; 96375; 99285; 96366; Q9967; J1940; J0456; J3475; J7030 ×2; J0696; J2930; J2405; 81003; 81015

== ENCOUNTER 2019-08-03 02:11 | Observation (INO) | payer BC ==
[2019-08-03] MEDS ORDERED: MORPHINE 2 MG/ML SYR ONE ×2 (02:57→06:25)
[2019-08-03] MEDS ORDERED: ONDANSETRON 4 MG/2 ML VIAL ONE (02:57)
[2019-08-03 03:22] LABS: Absolute Lymphocytes (CBC) 2.2 K/uL (0.7-4.9); Hematocrit 47.3 % (36.0-45.0); MPV 9.8 fL (7.6-11.3); RBC Red Blood Cell Count 5.04 M/uL (3.86-4.86)
[2019-08-03 03:44] LABS: Arterial Blood Carboxyhemoglob 1.8 % (0-1.5); Blood Gas Oxyhemoglobin 94.1 % (94-97); Blood O2 Saturation 96.2 % (92-98.5)
[2019-08-03 03:49] LABS: ALT/SGPT 81 U/L (12-78); AST/SGOT 59 U/L (15-37); Albumin 3.3 g/dL (3.4-5.0); Alkaline Phosphatase 122 U/L (45-117); BUN Blood Urea Nitrogen 22 mg/dL (7-18); Bicarbonate 28 mmol/L (21-32); Bilirubin Direct 0.2 mg/dL (0-0.2); Bilirubin Total 0.6 mg/dL (0.2-1.0); Glucose Level 111 mg/dL (74-106); Magnesium 1.8 mg/dL (1.8-2.4); NT PRO-BNP 289 pg/mL (<125); Potassium 4.2 mmol/L (3.5-5.1); Protein, Total 7.1 g/dL (6.4-8.2); Sodium Level 137 mmol/L (136-145); Troponin (Emerg Dept Use Only) < 0.02 ng/mL (0.0-0.045)
--- NOTE | 2019-08-03 04:24 | ER ---
Nurse's Notes [facility] Name: Osmani Esposito Age: 63 yrs Sex: Female : 1955 Arrival Date: 08/03/2019 Time: 02:21 Bed 7 Private MD: Diagnosis: Presentation: 08/03 02:29 Presenting complaint: Patient states: she was at home and had a sudden onset of CP that aa1 radiated to her jaw and back which improved to 4/10 after taking ASA 324 mg. Reports she also has a hx of pulmonary fibrosis and pulmonary HTN and wears continuous O2 at home which she normally sats in the high 80's. Transition of care: patient was not received from another setting of care. Onset of symptoms was August 03, 2019. Risk Assessment: Do you want to hurt yourself or someone else? Patient reports no desire to harm self or others. Initial Sepsis Screen: Does the patient meet any 2 criteria? No. Patient's initial sepsis screen is negative. Does the patient have a suspected source of infection? No. Patient's initial sepsis screen is negative. Care prior to arrival: Medication(s) given: ASA, 81 mg, x 4. 02:29 Method Of Arrival: EMS: [facility] aa1 02:29 Acuity: AMADA 2 aa1 Historical: - Allergies: 02:36 No Known Allergies; aa1 - Home Meds: 02:36 digoxin 250 mcg Oral tab 1 tab once daily [Active]; furosemide 40 mg Oral tab 1 tab 2 aa1 times per day [Active]; DuoNeb 0.5 mg-3 mg(2.5 mg base)/3 mL Inhl nebu 3 mL 4 times per day [Active]; pantoprazole 40 mg oral TbEC 1 tab once daily [Active]; sildenafil 20 mg oral tab 1 tab 3 times per day [Active]; prednisone 20 mg Oral tab 1.5 tab once daily [Active]; Zoloft 25 mg oral tab 1 tab once daily [Active]; - PMHx: 02:36 Anxiety; COPD; Hepatitis; pulmonary fibrosis; GERD; pulmonary hypertension; CHF; aa1 - PSHx: 02:36 ; Hysterectomy; multiple orthopedic surgeries; aa1 - Immunization history:: Flu vaccine is not up to date. - Social history:: Smoking status: Patient/guardian denies using tobacco. - Ebola Screening: : Patient denies exposure to infectious person Patient denies travel to an Ebola-affected area in the 21 days before illness onset. Screenin:38 Abuse screen: Denies threats or abuse. Denies injuries from another. Nutritional aa1 screening: No deficits noted. Tuberculosis screening: No symptoms or risk factors identified. Fall Risk None identified. Assessment: 02:38 General: Appears in no apparent distress. comfortable, Behavior is calm, cooperative, aa1 appropriate for age. Pain: Complains of pain in chest Pain radiates to back Pain currently is 4 out of 10 on a pain scale. Quality of pain is described as pressure, Pain began 1 hour ago. Is continuous. Neuro: Level of Consciousness is awake, alert, obeys commands, Oriented to person, place, time, situation, Moves all extremities. Full function Speech is normal. Cardiovascular: Reports chest pain, Denies diaphoresis, lightheadedness, nausea, palpitations, Heart tones S1 S2 present Capillary refill < 3 seconds Clubbing of nail beds is absent JVD is absent Patient's skin is warm and dry. Rhythm is regular Chest pain is described as mild, quality is heaviness, is located in anterior chest wall radiates back episodes are continuous. Respiratory: Airway is patent Respiratory effort is even, unlabored, Respiratory pattern is regular, symmetrical. GI: No signs and/or symptoms were reported involving the gastrointestinal system. : No signs and/or symptoms were reported regarding the genitourinary system. EENT: No signs and/or symptoms were reported regarding the EENT system. Derm: Skin is intact, is healthy with good turgor, Skin is pink, warm \T\ dry. Musculoskeletal: Circulation, motion, and sensation intact. Capillary refill < 3 seconds. 03:34 Reassessment: Patient appears in no apparent distress at this time. Patient and/or aa1 family updated on plan of care and expected duration. Pain level reassessed. Patient is alert, oriented x 3, equal unlabored respirations, skin warm/dry/pink. Awaiting lab results. 04:57 Reassessment: Patient appears in no apparent distress at this time. Patient and/or aa1 family updated on plan of care and expected duration. Pain level reassessed. Patient is alert, oriented x 3, equal unlabored respirations, skin warm/dry/pink. Pt to be admitted however she does not wish to stay and would like to sign out AMA; notified. Pt reports that she does not have working portable O2 at this time and needs to find a way to get an O2 tank to use to get her back to her house where her home O2 is Patient denies pain at this time. Patient states feeling better. 06:00 Reassessment: Patient appears in no apparent distress at this time. Patient and/or aa1 family updated on plan of care and expected duration. Pain level reassessed. Patient is alert, oriented x 3, equal unlabored respirations, skin warm/dry/pink. Pt awaiting portable O2 to go home. Company that supplies her O2 equipment states they will be at her home between [id number] this am. 06:55 Reassessment: Patient appears in no apparent distress at this time. Patient and/or aa1 family updated on plan of care and expected duration. Pain level reassessed. Patient is alert, oriented x 3, equal unlabored respirations, skin warm/dry/pink. Pt still awaiting portable O2 so that she may sign out AMA. Vital Signs: 02:36 BP 119 / 88; Pulse 87; Resp 20; Temp 98.0; Pulse Ox 92% on 5 lpm NC; Weight 101.15 kg; aa1 Height 5 ft. 4 in. (162.56 cm); Pain 4/10; 03:34 BP 120 / 94; Pulse 91; Resp 18; Pulse Ox 92% on 5 lpm NC; Pain 0/10; aa1 04:30 BP 110 / 88; Pulse 89; Resp 20; Pulse Ox 92% on 5 lpm NC; Pain 0/10; aa1 05:30 BP 112 / 88; Pulse 94; Resp 18; Pulse Ox 93% on 5 lpm NC; Pain 0/10; aa1 06:30 BP 129 / 81; Pulse 91; Resp 16; Pulse Ox 94% on 5 lpm NC; Pain 0/10; aa1 11:20 BP 113 / 66; Pulse 82; Resp 18 S; Pulse Ox 96% on 5 lpm NC; sg 02:36 Body Mass Index 38.28 (101.15 kg, 162.56 cm) aa1 ED Course: 02:21 Patient arrived in ED. cl3 02:22 Cal Gant MD is Attending Physician. pkl 02:29 Michelle Mcgraw, RN is Primary Nurse. aa1 02:31 Triage completed. aa1 02:36 Arm band placed on right wrist. aa1 02:38 Patient has correct armband on for positive identification. Placed in gown. Bed in low aa1 position. Call light in reach. quality assurance monitor chassis on. Pulse ox on. NIBP on. Warm blanket given. 02:38 Oxygen administration via nasal cannula \T\ 5L/min. aa1 02:58 XRAY Chest (1 view) In Process Unspecified. EDMS 03:00 Initial lab(s) drawn, by wv, sent to lab. Inserted saline lock: 20 gauge in right aa1 forearm, using aseptic technique. Blood collected. 04:23 Miah Aguilar is Hospitalizing Provider. pkl 06:56 No provider procedures requiring assistance completed. aa1 11:20 IV discontinued, intact, bleeding controlled, No redness/swelling at site. Pressure sg dressing applied. Administered Medications: 03:00 Drug: morphine 2 mg Route: IVP; Site: right forearm; aa1 04:00 Follow up: Response: No adverse reaction; Pain is decreased aa1 03:00 Drug: Zofran 4 mg Route: IVP; Site: right forearm; aa1 04:00 Follow up: Response: No adverse reaction aa1 06:25 Drug: morphine 4 mg Route: IVP; Site: right antecubital; aa1 Outcome: 04:24 Decision to Hospitalize by Provider. pkl 11:20 AMA AMA form signed sg 11:20 Condition: stable 11:20 Instructed on follow up and referral plans. safety practices, Demonstrated understanding of instructions. 11:24 Patient left the ED. sg Signatures: Dispatcher [employer] Benny Stephens RN RN Michelle Mcgraw, RN RN aa1 Cal Gant MD MD pkKailey Murphy cl3
--- NOTE | 2019-08-03 04:25 | EDPHYS ---
Physician Documentation [facility] Name: Osmani Esposito Age: 63 yrs Sex: Female : 1955 Arrival Date: 08/03/2019 Time: 02:21 Bed 7 Private MD: ED Physician Cal Gant HPI: 08/03 03:04 This 63 yrs old Female presents to ER via EMS with complaints of Chest Pain. pkl 03:04 The patient or guardian reports chest pain that is located primarily in the substernal pkl area. Onset: just prior to arrival, 1 hour(s) ago. The pain radiates to neck, back. Associated signs and symptoms: Pertinent positives: shortness of breath. The chest pain is described as a heaviness. Historical: - Allergies: 02:36 No Known Allergies; aa1 - Home Meds: 02:36 digoxin 250 mcg Oral tab 1 tab once daily [Active]; furosemide 40 mg Oral tab 1 tab 2 aa1 times per day [Active]; DuoNeb 0.5 mg-3 mg(2.5 mg base)/3 mL Inhl nebu 3 mL 4 times per day [Active]; pantoprazole 40 mg oral TbEC 1 tab once daily [Active]; sildenafil 20 mg oral tab 1 tab 3 times per day [Active]; prednisone 20 mg Oral tab 1.5 tab once daily [Active]; Zoloft 25 mg oral tab 1 tab once daily [Active]; - PMHx: 02:36 Anxiety; COPD; Hepatitis; pulmonary fibrosis; GERD; pulmonary hypertension; CHF; aa1 - PSHx: 02:36 ; Hysterectomy; multiple orthopedic surgeries; aa1 - Immunization history:: Flu vaccine is not up to date. - Social history:: Smoking status: Patient/guardian denies using tobacco. - Ebola Screening: : Patient denies exposure to infectious person Patient denies travel to an Ebola-affected area in the 21 days before illness onset. ROS: 03:04 Eyes: Negative for injury, pain, redness, and discharge, ENT: Negative for injury, pkl pain, and discharge, Neck: Negative for injury, pain, and swelling. 03:04 Cardiovascular: Positive for chest pain. 03:04 Respiratory: Positive for shortness of breath. 03:04 Abdomen/GI: Negative for abdominal pain, nausea, vomiting, and diarrhea. 03:04 Back: Negative for acute changes. 03:04 : Negative for urinary symptoms. 03:04 MS/extremity: Negative for acute changes. 03:04 Skin: Negative for rash. 03:04 Neuro: Negative for altered mental status. Exam: 03:04 Head/Face: Normocephalic, atraumatic. Eyes: Pupils equal round and reactive to light, pkl extra-ocular motions intact. Lids and lashes normal. Conjunctiva and sclera are non-icteric and not injected. Cornea within normal limits. Periorbital areas with no swelling, redness, or edema. ENT: Nares patent. No nasal discharge, no septal abnormalities noted. Tympanic membranes are normal and external auditory canals are clear. Oropharynx with no redness, swelling, or masses, exudates, or evidence of obstruction, uvula midline. Mucous membranes moist. Neck: Trachea midline, no thyromegaly or masses palpated, and no cervical lymphadenopathy. Supple, full range of motion without nuchal rigidity, or vertebral point tenderness. No Meningismus. Chest/axilla: Normal chest wall appearance and motion. Nontender with no deformity. No lesions are appreciated. Cardiovascular: Regular rate and rhythm with a normal S1 and S2. No gallops, murmurs, or rubs. Normal PMI, no JVD. No pulse deficits. Respiratory: Lungs have equal breath sounds bilaterally, clear to auscultation and percussion. No rales, rhonchi or wheezes noted. No increased work of breathing, no retractions or nasal flaring. Abdomen/GI: Soft, non-tender, with normal bowel sounds. No distension or tympany. No guarding or rebound. No evidence of tenderness throughout. Back: No spinal tenderness. No costovertebral tenderness. Full range of motion. Skin: Warm, dry with normal turgor. Normal color with no rashes, no lesions, and no evidence of cellulitis. MS/ Extremity: Pulses equal, no cyanosis. Neurovascular intact. Full, normal range of motion. Neuro: Awake and alert, GCS 15, oriented to person, place, time, and situation. Cranial nerves II-XII grossly intact. Motor strength 5/5 in all extremities. Sensory grossly intact. Cerebellar exam normal. Normal gait. Vital Signs: 02:36 BP 119 / 88; Pulse 87; Resp 20; Temp 98.0; Pulse Ox 92% on 5 lpm NC; Weight 101.15 kg; aa1 Height 5 ft. 4 in. (162.56 cm); Pain 4/10; 03:34 BP 120 / 94; Pulse 91; Resp 18; Pulse Ox 92% on 5 lpm NC; Pain 0/10; aa1 04:30 BP 110 / 88; Pulse 89; Resp 20; Pulse Ox 92% on 5 lpm NC; Pain 0/10; aa1 05:30 BP 112 / 88; Pulse 94; Resp 18; Pulse Ox 93% on 5 lpm NC; Pain 0/10; aa1 06:30 BP 129 / 81; Pulse 91; Resp 16; Pulse Ox 94% on 5 lpm NC; Pain 0/10; aa1 11:20 BP 113 / 66; Pulse 82; Resp 18 S; Pulse Ox 96% on 5 lpm NC; sg 02:36 Body Mass Index 38.28 (101.15 kg, 162.56 cm) aa1 MDM: 02:22 Patient medically screened. pkl 04:21 Data reviewed: vital signs, nurses notes, lab test result(s), EKG, radiologic studies. [facility] ED course: Talked to Dr. Aguilar, for observation. 08/03 02:41 Order name: Basic Metabolic Panel; Complete Time: 04:12 08/03 02:41 Order name: CBC with Diff; Complete Time: 03:30 08/03 02:41 Order name: LFT's; Complete Time: 04:12 08/03 02:41 Order name: Magnesium; Complete Time: 04:12 08/03 02:41 Order name: NT PRO-BNP; Complete Time: 04:12 08/03 02:41 Order name: PT-INR; Complete Time: 04:12 08/03 02:41 Order name: Troponin (emerg Dept Use Only); Complete Time: 04:12 08/03 02:41 Order name: XRAY Chest (1 view) aa08/03 02:41 Order name: EKG; Complete Time: 02:42 aa08/03 02:51 Order name: D-Dimer; Complete Time: 04:12 pkl 08/03 02:51 Order name: ABG; Complete Time: 04:12 pkl 08/03 02:41 Order name: Cardiac monitoring; Complete Time: 02:52 08/03 02:41 Order name: EKG - Nurse/Tech; Complete Time: 02:58 08/03 02:41 Order name: IV Saline Lock; Complete Time: 02:58 08/03 02:41 Order name: Labs collected and sent; Complete Time: 02:58 08/03 02:41 Order name: O2 Per Protocol; Complete Time: 02:52 08/03 02:41 Order name: O2 Sat Monitoring; Complete Time: 02:52 aa Administered Medications: 03:00 Drug: morphine 2 mg Route: IVP; Site: right forearm; aa1 04:00 Follow up: Response: No adverse reaction; Pain is decreased aa1 03:00 Drug: Zofran 4 mg Route: IVP; Site: right forearm; aa1 04:00 Follow up: Response: No adverse reaction aa1 06:25 Drug: morphine 4 mg Route: IVP; Site: right antecubital; aa1 Disposition: 08/03/19 11:24 Patient has left against medical advice. - Patients states they are going to Home. - Condition is Stable. Follow up: Private Physician; When: As needed; Reason: Recheck today's complaints, Re-evaluation by your physician. Signatures: Dispatcher [employer] Benny Stephens RN RN sg Michelle Mcgraw RN RN aa1 Cal Gant MD MD pkl Garcia, Cindy, RN RN cg Corrections: (The following items were deleted from the chart) 06:20 04:24 Hospitalization Ordered by Miah Aguilar for Observation. Preliminary diagnosis cg is Chest pain. COPD exacerbation. Bed requested for Telemetry/MedSurg (observation). Status is Observation. Condition is Fair. Problem is new. Symptoms are unchanged. UTI on Admission? No. pkl 11:24 06:20 08/03/2019 04:24 Hospitalization Ordered by Miah Aguilar for Observation. sg Preliminary diagnosis is Chest pain. COPD exacerbation. Bed requested for [facility] ER HOLD. Status is Observation. Condition is Fair. Problem is new. Symptoms are unchanged. UTI on Admission? No. cg
--- NOTE | 2019-08-03 05:28 | P.HP ---
Certification for Inpatient Patient admitted to: Observation With expected LOS: <2 Midnights Practitioner: I am a practitioner with admitting privileges, knowledge of patient current condition, hospital course, and medical plan of care. Services: Services provided to patient in accordance with Admission requirements found in Title 42 Section 412.3 of the Code of Federal Regulations Patient History Date of Service: 08/03/19 Reason for admission: Chest pain History of Present Illness: 63-year-old woman with a history of multiple medical problems including pulmonary fibrosis, pulmonary hypertension diagnosed by a right heart catheterization, chronic respiratory failure on home oxygen, 5 L by [place] presented to the emergency department with a complaint of sudden onset of chest pain which woke her up from sleep last night. Patient described an anterior chest pain, rated as severe, nonradiating. She also reports upper back pain. She denied any palpitation. She states that she is perpetually short of breath with activity. She stated her oxygen saturation usually hovers around 88 to 90% . She reports faulty portable oxygen tank since yesterday and has not gotten a replacement yet. She is currently taking a tapering dose of prednisone. Her initial troponin is negative in the ED. EKG demonstrates sinus rhythm and diffuse ST depressions. Chest x-ray report findings consistent with pulmonary fibrosis. Patient is placed under observation for ACS rule out. Allergies No Known Allergies Allergy (Verified 07/14/19 06:31) Home Medications: Rivaroxaban [Xarelto*] 20 mg PO DAILY #0 tablet 01/28/13 Sotalol HCl [Betapace*] 80 mg PO BID #60 tab 01/28/13 - Past Medical/Surgical History Diabetic: No -: hep c -: pulmonary fibrosis -: anxiety -: copd -: ankle, heel sx -: c section - Family History Family History: Reviewed- Non-Contributory - Social History Smoking Status: Former smoker Alcohol use: Yes CD- Drugs: No Caffeine use: Yes Review of Systems Other: General: No fever, no malaise, no unintentional weight loss. Eyes: No eye discharge, CVS: No palpitation, no lightheadedness. GI: No abdominal pain, no nausea no vomit, no constipation, no diarrhea. Genitourinary: No dysuria, no urinary frequency, no incontinence, no hematuria. Musculoskeletal: No joint pains, or joint swelling, no gait instability. Neurology: No headache, no asymmetric weakness, no problem with swallowing. Except as documented, all other systems reviewed and negative. Physical Examination - Physical Exam General: Alert, In no apparent distress, Oriented x3 HEENT: PERRLA, Mucous membr. moist/pink, Sclerae nonicteric Neck: JVD not distended, No Thyromegaly Respiratory: Clear to auscultation bilaterally, Diminished (Diffuse diminished breath sounds) Cardiovascular: No edema, Normal S1 S2, Other (Tachycardia) Capillary refill: <2 Seconds Gastrointestinal: Normal bowel sounds, Soft and benign, Non-distended, No tenderness Musculoskeletal: No swelling, No erythema Integumentary: No rashes, No erythema Neurological: Normal speech, Normal strength at 5/5 x4 extr - Studies Laboratory Data (last 24 hrs) 08/03/19 03:00: PT 11.8, INR 1.00 08/03/19 03:00: WBC 12.4 H, Hgb 16.0 H, Hct 47.3 H, Plt Count 152 08/03/19 03:00: Sodium 137, Potassium 4.2, BUN 22 H, Creatinine 0.89, Glucose 111 H, Magnesium 1.8 D, Total Bilirubin 0.6, AST 59 H, ALT 81 H, Alkaline Phosphatase 122 H Assessment and Plan - Problems (Diagnosis) (1) Chest pain Current Visit: Yes Status: Acute (2) Chronic respiratory failure with hypoxia Current Visit: Yes Status: Chronic (3) Pulmonary fibrosis Current Visit: Yes Status: Chronic (4) Pulmonary hypertension Current Visit: Yes Status: Chronic - Plan Place under observation with telemetry Trend troponin Obtain echocardiogram Serial EKG Cardiology consult Oxygen therapy-5 L by nasal cannula Continue home medication for pulmonary hypertension Continue prednisone taper Consult to social service to assist with arrangements for home oxygen replacement - Advance Directives Does patient have a Living Will: Yes Does patient have a Durable POA for Healthcare: Yes
--- NOTE | 2019-08-03 09:46 | RAD REPORT ---
EXAM DESCRIPTION: RAD - Chest Single View - 08/03/2019 2:57 am CLINICAL HISTORY: Chest pain COMPARISON: July 14, 2019 TECHNIQUE: AP portable chest image was obtained 0254 hours . FINDINGS: Lung volumes are low. Interstitial and alveolar opacification present in a pattern slightl y worse than comparison. Cardiac silhouette and vascular engorgement are both prominent. No large ple ural effusion. No acute bony abnormality seen. No acute aortic findings suspected. IMPRESSION: Pulmonary edema pattern is present from failure or volume overload. Findings are less pr ominent than seen on the July 14, 2019 comparison.
[2019-08-03 11:45] VITALS: TEMP 98
[2019-08-03 11:52] VITALS: BP 129/81; O2SAT 94
--- NOTE | 2019-08-03 12:18 | EKG ---
Test Date: 2019-08-03 Test Time: 03:24:33 Tar Leveler: KAILYN MEASUREMENT RESULTS: Intervals: Rate: 91 [place]: 138 QRSD: 82 QT: 328 QTc: 403 [place]: P: 21 [place]: 138 QRS: 48 T: 267 INTERPRETIVE STATEMENTS: Normal sinus rhythm Right atrial enlargement Septal infarct, age undetermined ST & T wave abnormality, consider inferolateral ischemia Abnormal ECG Compared to ECG 07/14/2019 03:10:09 Myocardial infarct finding now present Possible ischemia now present Sinus tachycardia no longer present ST (T wave) deviation still present Electronically Signed On 08-03-19 12:17:34 [employer] by Joseph Callahan
== END 2019-08-03 11:24 | disposition left against medical advice (07) ==
LOC: ER 02:11 → ERHOLD 05:39
PROVIDERS: ADMIT Internal Medicine; ATTEND Internal Medicine
DX: R07.9 Chest pain, unspecified (principal); J96.11 Chronic respiratory failure with hypoxia; I27.20 Pulmonary hypertension, unspecified; J84.10 Pulmonary fibrosis, unspecified; Z53.29 Procedure and treatment not carried out because of patient's decision for other reasons; Z99.81 Dependence on supplemental oxygen
CPT/HCPCS: 93005; 85025; 80048; 36415; 83735; 85610; 85379; 80076; 84484; 83880; 71045; 82805; 99285; J2270 ×2; J2405; G0378 ×2

== ENCOUNTER 2019-09-07 02:06 | Inpatient (IN) | payer BC ==
[2019-09-07] MEDS ORDERED: MAGNESIUM SULFATE 1 gm IVPB 1 GM/100 ML BAG IV ONE (02:22)
[2019-09-07] MEDS ORDERED: LEVALBUTEROL 1.25 MG/3 ML NEB ONE (02:22)
[2019-09-07 02:38] LABS: Basophils % 0.9 % (0-1.3); Hematocrit 47.7 % (36.0-45.0); Lymphocytes % 26.1 % (15.3-44.8); MPV 10.8 fL (7.6-11.3); RBC Red Blood Cell Count 4.99 M/uL (3.86-4.86)
[2019-09-07 02:44] LABS: Arterial Blood Carboxyhemoglob 1.6 % (0-1.5); Blood Gas Oxyhemoglobin 96.7 % (94-97)
[2019-09-07 03:20] LABS: BUN Blood Urea Nitrogen 17 mg/dL (7-18); Bicarbonate 27 mmol/L (21-32); Glucose Level 130 mg/dL (74-106); NT PRO-BNP 1746 pg/mL (<125); Potassium 3.7 mmol/L (3.5-5.1); Sodium Level 139 mmol/L (136-145); Troponin (Emerg Dept Use Only) < 0.02 ng/mL (0.0-0.045)
[2019-09-07] MEDS ORDERED: FUROSEMIDE 40 MG/4 ML VIAL ONE (03:46)
--- NOTE | 2019-09-07 03:52 | ER ---
Nurse's Notes [facility] Name: Osmani Esposito Age: 64 yrs Sex: Female : 1955 Arrival Date: 09/07/2019 Time: 02:08 Bed 19 Private MD: Diagnosis: Pulmonary fibrosis, unspecified;Unspecified combined systolic (congestive) and diastolic (congestive) heart failure;Pulmonary edema;Hypoxemia Presentation: 09/07 02:08 Presenting complaint: EMS states: Pt woke up from sleep with shortness of breath. Pt wh with Hx of Pulmonary fibrosis on home O2, Pt states she was supposed to see Sales Record Clerk in [place] but wasn't able to because she was not feeling well. Pt states she has been getting short of breath progressively this past few days. Transition of care: patient was not received from another setting of care. Onset of symptoms was September 07, 2019. Risk Assessment: Do you want to hurt yourself or someone else? Patient reports no desire to harm self or others. Initial Sepsis Screen: Does the patient meet any 2 criteria? RR > 20 per min. HR > 90 bpm. Does the patient have a suspected source of infection? No. Patient's initial sepsis screen is negative. Care prior to arrival: Medication(s) given: Albuterol Neb x 2, Atrovent Neb x 1, Solumedrol 125 mg IV IV initiated. 18 GA, in the left antecubital area, Glucose check: 178 Med neb given. Oxygen administered. via a nebulizer mask. 02:08 Method Of Arrival: EMS: [facility] 02:08 Acuity: AMADA 3 Historical: - Allergies: 02:16 No Known Allergies; - Home Meds: 02:16 prednisone 10 mg oral tab 1 tab once daily [Active]; furosemide 80 mg oral tab 1 tab once daily [Active]; sildenafil 20 mg Oral tab 1 tab 3 times per day [Active]; DuoNeb 0.5 mg-3 mg(2.5 mg base)/3 mL Inhl nebu 3 mL 4 times per day [Active]; pantoprazole 40 mg Oral TbEC 1 tab once daily [Active]; Zoloft 25 mg Oral tab 1 tab once daily [Active]; digoxin 250 mcg Oral tab 1 tab once daily [Active]; sertraline oral oral [Active]; - PMHx: 02:16 Anxiety; CHF; COPD; GERD; Hepatitis; pulmonary fibrosis; PULMONARY HYPERTENSION; wh - Immunization history:: Adult Immunizations up to date. - Coronavirus screen:: The patient has NOT traveled to [place] in the past 14 days. - Social history:: Smoking status: Patient/guardian denies using. - Family history:: not pertinent. - Ebola Screening: : Patient negative for fever greater than or equal to 101.5 degrees Fahrenheit, and additional compatible Ebola Virus Disease symptoms Patient denies exposure to infectious person. - Hospitalizations: : No recent hospitalization is reported. Screenin:17 Abuse screen: Denies threats or abuse. Denies injuries from another. Nutritional wh screening: No deficits noted. Tuberculosis screening: No symptoms or risk factors identified. Fall Risk None identified. Assessment: 02:18 General: Appears distressed, Behavior is calm, cooperative, appropriate for age. Pain: wh Denies pain. Neuro: Level of Consciousness is awake, alert, obeys commands, Oriented to person, place, time, situation, Appropriate for age. Cardiovascular: Heart tones S1 S2. Respiratory: Reports shortness of breath at rest air hunger Airway is patent Respiratory effort is labored, shallow, Respiratory pattern is tachypnea Breath sounds with rales bilaterally. GI: Abdomen is flat, non-distended. : No signs and/or symptoms were reported regarding the genitourinary system. EENT: No signs and/or symptoms were reported regarding the EENT system. Derm: Skin is intact, is healthy with good turgor, Skin is pink, warm \T\ dry. normal. Musculoskeletal: Circulation, motion, and sensation intact. 03:17 Reassessment: Patient appears in no apparent distress at this time. No changes from previously documented assessment. Patient and/or family updated on plan of care and expected duration. Pain level reassessed. Patient is alert, oriented x 3, equal unlabored respirations, skin warm/dry/pink. Patient states symptoms have improved. 04:00 Reassessment: Patient appears in no apparent distress at this time. No changes from previously documented assessment. Patient and/or family updated on plan of care and expected duration. Pain level reassessed. Patient is alert, oriented x 3, equal unlabored respirations, skin warm/dry/pink. MD at bedside explaining POC need for admit. 05:13 Reassessment: Patient appears in no apparent distress at this time. No changes from previously documented assessment. Patient and/or family updated on plan of care and expected duration. Pain level reassessed. Patient is alert, oriented x 3, equal unlabored respirations, skin warm/dry/pink. Vital Signs: 02:16 BP 119 / 91; Pulse 118; Resp 20; Temp 98.2; Pulse Ox 96% on BiPAP; Weight 90.72 kg; Height 5 ft. 4 in. (162.56 cm); 03:17 BP 122 / 94; Pulse 125; Resp 20; Pulse Ox 98% on 50% BiPAP; 04:00 BP 121 / 93; Pulse 114; Resp 20; Pulse Ox 96% on 50% BiPAP; 05:10 BP 108 / 81; Pulse 105; Resp 18; Pulse Ox 97% on 50% BiPAP; 02:16 Body Mass Index 34.33 (90.72 kg, 162.56 cm) ED Course: 02:08 Patient arrived in ED. ds1 02:08 Matt Gonzales MD is Attending Physician. rn 02:08 Saeed Harris is Primary Nurse. 02:10 Triage completed. 02:15 Maintain EMS IV. Dressing intact. Good blood return noted. Site clean \T\ dry. 02:19 Patient has correct armband on for positive identification. Placed in gown. Bed in low wh position. Call light in reach. Side rails up X 1. child monitor on. Pulse ox on. NIBP on. 02:19 Arm band placed on right wrist. Patient placed on oxygen, on quality assurance monitor final, on pulse oximetry. 03:51 Dillon Valle MD is Hospitalizing Provider. rn 05:11 No provider procedures requiring assistance completed. Patient admitted, IV remains in place. Administered Medications: 02:43 Drug: Magnesium Sulfate 1 grams Route: IVPB; Infused Over: 1 hrs; Site: left wh antecubital; 04:54 Follow up: Response: No adverse reaction; IV Status: Completed infusion 02:44 Drug: Xopenex (3) 1.25 mg Route: Inhalation; 04:54 Follow up: Response: No adverse reaction; Wheezing diminished 03:51 Drug: Lasix 40 mg Route: IVP; Site: left antecubital; 04:54 Follow up: Response: No adverse reaction Outcome: 03:51 Decision to Hospitalize by Provider. rn 05:12 Admitted to Tele accompanied by nurse, via stretcher, room 412, with oxygen, with chart, Report called to Db Sanderson RN 05:12 Condition: stable 05:12 Instructed on the need for admit. 05:51 Patient left the ED. Signatures: Anaid Lopez ds1 Matt Gonzales MD MD rn Habalo, Winsy Corrections: (The following items were deleted from the chart) 02:12 02:08 Care prior to arrival: None. [facility] 05:11 03:17 BP 122 / 94; Pulse 125bpm; Resp 20bpm; Pulse Ox 98% BiPAP; [facility] 05:12 05:12 Instructed on [facility]
--- NOTE | 2019-09-07 03:52 | EDPHYS ---
Physician Documentation [facility] Name: Osmani Esposito Age: 64 yrs Sex: Female : 1955 Arrival Date: 09/07/2019 Time: 02:08 Bed 19 Private MD: ED Physician Matt Gonzales HPI: 09/07 02:18 This 64 yrs old Female presents to ER via EMS with complaints of Shortness Of rn Breath. 02:18 The patient has shortness of breath at rest. Onset: The symptoms/episode began/occurred rn at an unknown time. Duration: The symptoms are continuous. The patient's shortness of breath is aggravated by exertion, light activity, supine position, is alleviated by nebulizer treatment. Severity of symptoms: At their worst the symptoms were moderate in the emergency department the symptoms have improved. The patient has experienced similar episodes in the past. Reports has pulmonary fibrosis, increased sob over last few days, worse in middle of the night tonight, woke up with increased sob, is on home O2, EMS got her \T\ 75% O2 on her home oxygen, gave her solumedrol and albuterol/atrovent with some improvement but still endorses dyspnea. No chest pain. No fever. . Historical: - Allergies: 02:16 No Known Allergies; - Home Meds: 02:16 prednisone 10 mg oral tab 1 tab once daily [Active]; furosemide 80 mg oral tab 1 tab wh once daily [Active]; sildenafil 20 mg Oral tab 1 tab 3 times per day [Active]; DuoNeb 0.5 mg-3 mg(2.5 mg base)/3 mL Inhl nebu 3 mL 4 times per day [Active]; pantoprazole 40 mg Oral TbEC 1 tab once daily [Active]; Zoloft 25 mg Oral tab 1 tab once daily [Active]; digoxin 250 mcg Oral tab 1 tab once daily [Active]; sertraline oral oral [Active]; - PMHx: 02:16 Anxiety; CHF; COPD; GERD; Hepatitis; pulmonary fibrosis; PULMONARY HYPERTENSION; wh - Immunization history:: Adult Immunizations up to date. - Coronavirus screen:: The patient has NOT traveled to [place] in the past 14 days. - Social history:: Smoking status: Patient/guardian denies using. - Family history:: not pertinent. - Ebola Screening: : Patient negative for fever greater than or equal to 101.5 degrees Fahrenheit, and additional compatible Ebola Virus Disease symptoms Patient denies exposure to infectious person. - Hospitalizations: : No recent hospitalization is reported. ROS: 02:18 Constitutional: Negative for fever, chills, and weight loss, Eyes: Negative for injury, rn pain, redness, and discharge, Neck: Negative for injury, pain, and swelling, Cardiovascular: Negative for chest pain, palpitations, and edema, Respiratory: + sob Abdomen/GI: Negative for abdominal pain, nausea, vomiting, diarrhea, and constipation, MS/Extremity: Negative for injury and deformity, Skin: Negative for injury, rash, and discoloration, Neuro: Negative for headache, weakness, numbness, tingling, and seizure. Exam: 02:18 Constitutional: This is a well developed, well nourished patient who is awake, alert, rn moderate tachypnea Head/Face: Normocephalic, atraumatic. ENT: dry MM, no stridor Cardiovascular: Tachycardic, regular, No pulse deficits. Respiratory: + moderate tachypnea, diminished base sounds at bases, faint wheezing bilateral upper lobes Abdomen/GI: soft, non-tender MS/ Extremity: Pulses equal, no cyanosis. Neurovascular intact. Full, normal range of motion. Equal circumference. Neuro: Awake and alert, GCS 15 Vital Signs: 02:16 BP 119 / 91; Pulse 118; Resp 20; Temp 98.2; Pulse Ox 96% on BiPAP; Weight 90.72 kg; wh Height 5 ft. 4 in. (162.56 cm); 03:17 BP 122 / 94; Pulse 125; Resp 20; Pulse Ox 98% on 50% BiPAP; wh 04:00 BP 121 / 93; Pulse 114; Resp 20; Pulse Ox 96% on 50% BiPAP; wh 05:10 BP 108 / 81; Pulse 105; Resp 18; Pulse Ox 97% on 50% BiPAP; wh 02:16 Body Mass Index 34.33 (90.72 kg, 162.56 cm) wh MDM: 02:08 Patient medically screened. rn 03:50 Differential diagnosis: CHF exacerbation, Myocardial Infarction pneumonia, Pneumothorax rn pulmonary edema, reactive airway disease. Data reviewed: vital signs, nurses notes, lab test result(s), EKG, radiologic studies, plain films, and as a result, I will admit patient. Counseling: I had a detailed discussion with the patient and/or guardian regarding: the historical points, exam findings, and any diagnostic results supporting the discharge/admit diagnosis, lab results, radiology results, the need for further work-up and treatment in the hospital. Response to treatment: the patient's symptoms have mildly improved after treatment, and as a result, I will admit patient. Admission orders: after a detailed discussion of the patient's condition and case, the admit orders are written by me. ED course: Pt admitted to Dr. Valle for pulmonary fibrosis/CHF exacerbation, ABG looks ok, much better on bipap. Afebrile, flu neg.. 09/07 02:10 Order name: ABG rn 09/07 02:10 Order name: Blood Culture Adult (2) rn 09/07 02:10 Order name: BMP rn 09/07 02:10 Order name: CBC with Diff rn 09/07 02:10 Order name: NT PRO-BNP rn 09/07 02:10 Order name: Troponin (emerg Dept Use Only) rn 09/07 02:10 Order name: Flu rn 09/07 02:11 Order name: Digoxin rn 09/07 02:55 Order name: CBC with Automated Diff; Complete Time: 03:38 EDMS 09/07 03:09 Order name: Influenza Screen (A ; Complete Time: 03:38 EDMS 09/07 03:21 Order name: Basic Metabolic Panel; Complete Time: 03:38 EDMS 09/07 03:21 Order name: Troponin (Emerg Dept Use Only); Complete Time: 03:38 EDMS 09/07 03:21 Order name: NT PRO-BNP; Complete Time: 03:38 EDMS 09/07 03:21 Order name: Digoxin Level; Complete Time: 03:38 EDMS 09/07 02:10 Order name: BIPAP rn 09/07 02:10 Order name: XRAY CXR (1 view) rn 09/07 02:10 Order name: EKG; Complete Time: 02:12 rn 09/07 02:10 Order name: Cardiac monitoring; Complete Time: 02:21 rn 09/07 02:10 Order name: EKG - Nurse/Tech; Complete Time: 02:21 rn 09/07 02:10 Order name: IV Saline Lock; Complete Time: 02:21 rn 09/07 02:10 Order name: Labs collected and sent; Complete Time: : rn 09/07 02:10 Order name: O2 Per Protocol; Complete Time: : rn 09/07 02:10 Order name: O2 Sat Monitoring; Complete Time: : rn 09/07 03:36 Order name: ABG Arterial Blood Gas; Complete Time: 03:38 EDMS Administered Medications: 02:43 Drug: Magnesium Sulfate 1 grams Route: IVPB; Infused Over: 1 hrs; Site: left antecubital; 04:54 Follow up: Response: No adverse reaction; IV Status: Completed infusion 02:44 Drug: Xopenex (3) 1.25 mg Route: Inhalation; 04:54 Follow up: Response: No adverse reaction; Wheezing diminished 03:51 Drug: Lasix 40 mg Route: IVP; Site: left antecubital; 04:54 Follow up: Response: No adverse reaction Disposition: 03:50 Critical Care:. rn Disposition: 09/07/19 03:51 Hospitalization ordered by Dillon Valle for Inpatient Admission. Preliminary diagnosis are Pulmonary fibrosis, unspecified, Unspecified combined systolic (congestive) and diastolic (congestive) heart failure, Pulmonary edema, Hypoxemia. - Bed requested for Telemetry/MedSurg (Inpatient). - Status is Inpatient Admission. - Condition is Stable. - Problem is an acute exacerbation. - Symptoms have improved. Critical care time excluding procedures: 03:50 Critical care time: Bedside Care: 25 minutes, Consultation: 5 minutes, Family rn Intervention: 2 minutes. Total time: 32 minutes Signatures: Dispatcher [facility] Sia Lizarraga RN RN mw Nieto, Roman, MD MD rn Habalo, Winsy Corrections: (The following items were deleted from the chart) 04:48 03:51 Hospitalization Ordered by Dillon Valle MD for Inpatient Admission. Preliminary marlo diagnosis is Pulmonary fibrosis, unspecified; Unspecified combined systolic (congestive) and diastolic (congestive) heart failure; Pulmonary edema; Hypoxemia. Bed requested for Telemetry/MedSurg (Inpatient). Status is Inpatient Admission. Condition is Stable. Problem is an acute exacerbation. Symptoms have improved. rn 05:51 04:48 09/07/2019 03:51 Hospitalization Ordered by Dillon Valle MD for Inpatient Admission. Preliminary diagnosis is Pulmonary fibrosis, unspecified; Unspecified combined systolic (congestive) and diastolic (congestive) heart failure; Pulmonary edema; Hypoxemia. Bed requested for Telemetry/MedSurg (Inpatient). Status is Inpatient Admission. Condition is Stable. Problem is an acute exacerbation. Symptoms have improved. mw
[2019-09-07] MEDS ORDERED: ACETAMINOPHEN 500 MG TAB PO PRN (04:12)
[2019-09-07] MEDS ORDERED: IBUPROFEN 400 MG TAB ONE (04:32)
[2019-09-07] MEDS ORDERED: NA CHLORIDE 0.9% 3,000 ML ONE (04:32)
[2019-09-07] MEDS ORDERED: METHYLPREDNISOLONE 125 MG INJ IV SCH (06:00)
[2019-09-07] MEDS ORDERED: IPRATROPIUM BROM 0.5MG/2.5ML NEB SCH (08:00)
[2019-09-07] MEDS ORDERED: ALBUTEROL 2.5 MG/3 ML NEB SOL NEB SCH (08:00)
[2019-09-07] MEDS ORDERED: LORazepam 2 MG/ML VIAL IV ONE (08:06)
[2019-09-07] MEDS ORDERED: METHYLPREDNISOLONE 125 MG INJ IV ONE (08:07)
[2019-09-07] MEDS ORDERED: MORPHINE 2 MG/ML SYR IV ONE (08:10)
[2019-09-07 08:25] LABS: Arterial Blood Carboxyhemoglob 1.3 % (0-1.5); Blood Gas Oxyhemoglobin 94.4 % (94-97); Blood O2 Saturation 96.2 % (92-98.5)
--- NOTE | 2019-09-07 08:28 | RAD REPORT ---
EXAM DESCRIPTION: RAD - Chest Single View - 09/07/2019 3:36 am CLINICAL HISTORY: 64 years Female, DYSPNEA COMPARISON: None. FINDINGS: Interstitial septal thickening throughout both lungs is demonstrated with generalized hazy opacity. No pneumothorax. No significant pleural effusion. Heart size appears mildly enlarged. Plate-screw fixation of the left proximal humerus is demonstrated. IMPRESSION: Generalized hazy opacity throughout both lungs with interstitial prominence which can be seen with pulmonary edema, underlying pneumonia not excluded. 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 The interpreting radiologist is f ully responsible for the content of the report.
--- NOTE | 2019-09-07 08:33 | P.HP ---
Certification for Inpatient Patient admitted to: Inpatient With expected LOS: >2 Midnights Patient will require the following post-hospital care: None Practitioner: I am a practitioner with admitting privileges, knowledge of patient current condition, hospital course, and medical plan of care. Services: Services provided to patient in accordance with Admission requirements found in Title 42 Section 412.3 of the Code of Federal Regulations Patient History Date of Service: 09/07/19 Reason for admission: dyspnea/history of pulmonary fibrosis with secondary pulmonary hypertension History of Present Illness: Patient is a 64-year-old female who comes to the hospital with shortness of breath. Patient has been have some difficulty breathing. She was recently in the hospital a couple of weeks ago because she had "fluid in her lungs". She was told she had pulmonary hypertension. She has a history of pulmonary fibrosis and she has been following up at [facility] with Dr. Silviano Bettencourt ([phone]). She was on sildenafil for the pulmonary hypertension. She says she is feeling much better after being placed on BiPAP today. Her chest x-ray does have some diffuse interstitial opacities. This could be pulmonary edema. We will get an echocardiogram and we will need to get records from [facility] as well. Start her on steroids, neb treatments, and antibiotics prophylactically. We will also gently diurese her. She will continue on BiPAP support and we will get Pulmonary, Dr. Melendez to see her. Anticipating that she should improve over the next 24-48 hours to where we can wean her off of the BiPAP. She also has a history of hepatitis C. She has a referral to go see Gastroenterology for further treatment. They have considered a lung transplant in the future once her hepatitis C is scared. She is in the process of following up to get this taken care of in the near future. Allergies No Known Allergies Allergy (Verified 07/14/19 06:31) Home Medications: Rivaroxaban [Xarelto*] 20 mg PO DAILY #0 tablet 01/28/13 Sotalol HCl [Betapace*] 80 mg PO BID #60 tab 01/28/13 - Past Medical/Surgical History Diabetic: No -: hepatitis-C -: pulmonary fibrosis -: anxiety -: copd -: ankle, heel sx -: c section - Family History Father Family History: Reviewed- Non-Contributory - Social History Smoking Status: Former smoker Alcohol use: Yes CD- Drugs: No Caffeine use: Yes Review of Systems 10-point ROS is otherwise unremarkable Physical Examination - Vital Signs Temperature: 96.9 F Blood Pressure: 119/78 Pulse: 106 Respirations: 43 Pulse Ox (%): 85 - Physical Exam General: Alert, In no apparent distress, Oriented x3 HEENT: Atraumatic, PERRLA, Mucous membr. moist/pink, EOMI, Sclerae nonicteric Neck: Supple, 2+ carotid pulse no bruit, No LAD, Without JVD or thyroid abnormality Respiratory: Diminished, Crackles/rales, Expiratory wheezes Cardiovascular: Regular rate/rhythm, Normal S1 S2, Systolic murmur Gastrointestinal: Normal bowel sounds, Soft and benign, Non-distended, No tenderness Musculoskeletal: No clubbing, No swelling, No tenderness Integumentary: No rashes Neurological: Normal gait, Normal speech, Normal strength at 5/5 x4 extr, Normal tone, Sensation intact, Cranial nerves 3-12 intact, Normal affect Lymphatics: No axilla or inguinal lymphadenopathy - Studies Laboratory Data (last 24 hrs) 09/07/19 02:15: WBC 11.6 H, Hgb 15.8 H, Hct 47.7 H, Plt Count 138 L 09/07/19 02:15: Sodium 139, Potassium 3.7, BUN 17, Creatinine 1.02, Glucose 130 H Microbiology Data (last 24 hrs): 09/07/19 02:20 Nasopharnyx Influenza Type A Antigen Screen - Final 09/07/19 02:20 Nasopharnyx Influenza Type B Antigen Screen - Final Assessment & Plan - Problems (Diagnosis) (1) Chronic respiratory failure with hypoxia Current Visit: No Status: Chronic (2) Pulmonary fibrosis Current Visit: No Status: Chronic (3) Pulmonary hypertension Current Visit: No Status: Chronic - Plan Plan: 1. Continue with nebs, steroids, and antibiotics 2. Pulmonary consultation 3. Echocardiogram 4. Gentle diuresing 5. Monitor potassium level 6. Strict eyes and nose 7. Continue with BiPAP support. We can gently wean this off over the next 24- 48 hours 8. GI and DVT prophylaxis Discharge Plan: Home Plan to discharge in: Greater than 2 days - Advance Directives Does patient have a Living Will: Yes Does patient have a Durable POA for Healthcare: Yes - Code Status/Comfort Care Code Status Assessed: Yes Code Status: Full Code Critical Care: Yes Time Spent Managing PTS Care (In Minutes): 45
[2019-09-07] MEDS ORDERED: FUROSEMIDE 40 MG/4 ML VIAL IV SCH (09:00)
[2019-09-07] MEDS ORDERED: ENOXAPARIN 40 MG/0.4 ML SQ SCH (09:00)
[2019-09-07] MEDS ORDERED: AZITHROMYCIN IV 250 MG in NA CHLORIDE 0.9% 250 ML IVPB SCH (09:00)
[2019-09-07] MEDS ORDERED: FUROSEMIDE 20 MG/ 2ML VIAL IV SCH (09:00)
--- NOTE | 2019-09-07 09:00 | RAD REPORT ---
EXAM DESCRIPTION: RAD - Chest Single View - 09/07/2019 8:39 am CLINICAL HISTORY: respiratory distress COMPARISON: Chest Single View dated 09/07/2019; Chest Single View dated 08/03/2019 TECHNIQUE: AP portable chest image was obtained 09/07/2019 8:39 am . FINDINGS: Shallow inspiration and motion degradation limits the examination. Pulmonary edema pattern seen 6 hours earlier is still present. The interstitial and alveolar opacities are not substantially different. Heart size is prominent but stable. Small pleural effusions are likely present. No pneumo thorax. IMPRESSION: Limited shallow inspiration portable study shows pulmonary edema pattern not substantial ly different from 6 hours earlier.
--- NOTE | 2019-09-07 09:24 | P.CNS ---
Date of Consult: 09/07/19 Reason for Consult: Respiratory distress Chief Complaint: dyspnea/history of pulmonary fibrosis with secondary pulmonary hypertension History of Present Illness: Patient is 64 years of age with a history of pulmonary fibrosis was seeing a pool finisher in [place] in addition she has also been evaluated by a lung transplant team patient was started on anti fibrotic therapy but she could not tolerated she does take steroids came in became worse over the past 2 weeks worsening shortness of breath denies any fever or chills patient has AFib is already anti coagulated currently on BiPAP in respiratory distress patient was also hypercapnic has a history of COPD Allergies No Known Allergies Allergy (Verified 07/14/19 06:31) Home Medications: Rivaroxaban [Xarelto*] 20 mg PO DAILY #0 tablet 01/28/13 Sotalol HCl [Betapace*] 80 mg PO BID #60 tab 01/28/13 - Past Medical/Surgical History Diabetic: No -: hepatitis-C -: pulmonary fibrosis -: anxiety -: copd -: ankle, heel sx -: c section - Family History Father Family History: Reviewed- Non-Contributory - Social History Smoking Status: Current every day smoker Alcohol use: Yes CD- Drugs: No Caffeine use: Yes Review of Systems 10-point ROS is otherwise unremarkable General: Weakness Respiratory: Shortness of Breath Physical Examination Temp Pulse Resp BP Pulse Ox 96.9 F 106 H 43 H 119/78 85 L 09/07/19 08:39 09/07/19 08:39 09/07/19 08:39 09/07/19 08:39 09/07/19 08:39 General: Alert, Moderate distress Neck: Supple Respiratory: Crackles/rales (Bilateral crackles), Expiratory wheezes Cardiovascular: No edema, Regular rate/rhythm, Normal S1 S2 Gastrointestinal: Normal bowel sounds, Soft and benign Musculoskeletal: No clubbing, No contractures Laboratory Data (last 24 hrs) 09/07/19 02:15: WBC 11.6 H, Hgb 15.8 H, Hct 47.7 H, Plt Count 138 L 09/07/19 02:15: Sodium 139, Potassium 3.7, BUN 17, Creatinine 1.02, Glucose 130 H - Problems (1) Chronic respiratory failure with hypoxia Current Visit: No Status: Chronic Plan: Patient is 64 years of age admitted with respiratory distress she has pulmonary fibrosis currently evaluated for lung transplant patient also states that she has hepatitis C also hypoxic hypercapnic patient does taken anticoagulants at home chest x-ray shows some interstitial changes with possible effusion on the left side continue with antibiotics steroids bronchodilators patient is an active smoker he have underlying obstructive airways disease also has AFib D- dimer is less than 500 echocardiogram pending continue with low-dose Lasix for now labs reviewed mildly elevated white count normal kidney function
[2019-09-07] MEDS: SOTALOL HCL 80 MG TAB PO SCH ×2 (09:38→20:21)
[2019-09-07] MEDS: FUROSEMIDE 20 MG/ 2ML VIAL IV SCH ×2 (09:38→16:29)
[2019-09-07] MEDS: CEFTRIAXONE/SWI 1gm 1 GM/10 ML SYR IV SCH ×2 (09:39→20:21)
--- NOTE | 2019-09-07 10:30 | P.PN ---
Date of Service: 09/07/19 Rapid response was called for respiratory distress around 830 this morning. Patient appeared to be in respiratory distress. She was anxious. BP was stable. Heart rate of 130s. Oxygen saturation 86-94%. 1 dose of IV Solu- medrol 125 mg was given. 0.5 mg Ativan and 2 mg morphine was given. She then felt better. Troponin and D-dimer unremarkable. CXR continues to demonstrate edema. IV Lasix 40 mg bid was ordered. She was transferred to the ICU for close monitoring
[2019-09-07] MEDS ORDERED: PNEUMOCOCCAL VACCINE 0.5 ML IMVAC ONE (12:00)
[2019-09-07] MEDS ORDERED: INFLUENZA VACCINE (for 3y+) 0.5 ML DOSE IMVAC ONE (12:00)
[2019-09-07] MEDS: ONDANSETRON 4 MG/2 ML VIAL IV PRN (12:36)
[2019-09-07] MEDS: RIVAROXABAN 20 MG TABLET PO SCH (12:57)
[2019-09-07] MEDS: LEVALBUTEROL 0.63 MG/3 ML NEB NEB SCH ×2 (13:26→20:05)
[2019-09-07] MEDS: IPRATROPIUM BROM 0.5MG/2.5ML NEB SCH ×2 (13:26→20:05)
--- NOTE | 2019-09-07 13:33 | EKG ---
Test Date: 2019-09-07 Test Time: 08:19:36 Television Reporter: LUISA MEASUREMENT RESULTS: Intervals: Rate: 130 MO: 136 QRSD: 76 QT: 296 QTc: 435 [place]: P: 13 MO: 136 QRS: 47 T: 98 INTERPRETIVE STATEMENTS: Sinus tachycardia Biatrial enlargement Low voltage QRS ST & T wave abnormality, consider lateral ischemia Abnormal ECG Compared to ECG 09/07/2019 02:16:17 Low QRS voltage now present Possible ischemia now present ST (T wave) deviation still present Electronically Signed On 09-07-19 13:32:47 UTILITY TENDER CARDING by Joseph Callahan
--- NOTE | 2019-09-07 13:34 | EKG ---
Test Date: 2019-09-07 Test Time: 02:16:17 Clockmaker Apprentice: RV MEASUREMENT RESULTS: Intervals: Rate: 110 OK: 134 QRSD: 70 QT: 302 QTc: 408 [place]: P: 24 OK: 134 QRS: 51 T: 76 INTERPRETIVE STATEMENTS: Sinus tachycardia Biatrial enlargement Nonspecific ST and T wave abnormality Abnormal ECG Compared to ECG 08/03/2019 03:24:33 Sinus rhythm no longer present Myocardial infarct finding no longer present Possible ischemia no longer present ST (T wave) deviation still present Electronically Signed On 09-07-19 13:33:51 GROUP CONTROLLER by Joseph Callahan
--- NOTE | 2019-09-07 15:26 | ECHO ---
HEIGHT: 5 ft 4 in WEIGHT: 200 lb 0 oz DATE OF STUDY: 09/07/[address]: Dillon Valle MD 2-DIMENSIONAL: YES M.MODE: YES DOPPLER: YES COLOR FLOW: YES TDS: NO PORTABLE: NO DEFINITY: NO BUBBLE STUDY: NO DIAGNOSIS: PULMONARY HYPERTENSION/ CONGESTIVE HEART FAILURE CARDIAC HISTORY: CATHERIZATION: YES SURGERY: NO PROSTHETIC VALVE: NO PACEMAKER: NO MEASUREMENTS (cm) DIASTOLIC (NORMALS) SYSTOLIC (NORMALS) IVSd 1.3 (0.6-1.2) LA Diam 3.6 (1.9-4.0) LVEF 66% LVIDd 3.6 (3.5-5.7) LVIDs 2.3 (2.0-3.5) %FS 35% LVPWd 1.4 (0.6-1.2) Ao Diam 2.9 (2.0-3.7) 2 DIMENSIONAL ASSESSMENT: RIGHT ATRIUM: NORMAL LEFT ATRIUM: NORMAL RIGHT VENTRICLE: NORMAL LEFT VENTRICLE: NORMAL TRICUSPID VALVE: NORMAL MITRAL VALVE: NORMAL PULMONIC VALVE: NORMAL AORTIC VALVE: NORMAL PERICARDIAL EFFUSION: NONE AORTIC ROOT: NORMAL LEFT VENTRICULAR WALL MOTION: NORMAL. DOPPLER/COLOR FLOW: MILD TRICUSPID REGURGITATION. MODERATE PULMONARY HYPERTENSION, ESTIMATED RIGHT VENTRICULAR SYSTOLIC PRESSURE 50mmHg. COMMENTS: NORMAL 2D ECHO. MILD TRICUSPID REGURGITATION. MODERATE PULMONARY HYPERTENSION. TECHNOLOGIST: BREN HAN
[2019-09-07 16:25] LABS: Urine Appearance TURBID; Urine Bilirubin NEGATIVE (NEG); Urine Blood 3+ (NEG); Urine Color DK YELLOW; Urine Glucose NEGATIVE (NEG); Urine Protein TRACE (NEG); Urine Specific Gravity 1.025 (1.005-1.030)
[2019-09-07] MEDS: METHYLPREDNISOLONE 40 MG INJ IV SCH (16:29)
[2019-09-07 16:32] LABS: Urine Microscopic Reflex ORDER UMIC
[2019-09-07 16:41] LABS: Urine Amorphous Sediment 2+ /HPF (NONE SEEN); Urine Bacteria 20-50 /HPF (<20); Urine Mucus 2+ /HPF (NONE SEEN); Urine RBC 20-50 /HPF (NONE SEEN)
[2019-09-07] MEDS: MORPHINE 2 MG/ML SYR IV PRN (20:20)
[2019-09-07] MEDS: ALPRAZOLAM 0.25 MG TABLET PO PRN (23:25)
[2019-09-08] MEDS: METHYLPREDNISOLONE 40 MG INJ IV SCH ×3 (00:41→16:51)
[2019-09-08] MEDS: IPRATROPIUM BROM 0.5MG/2.5ML NEB SCH ×4 (02:00→20:35)
[2019-09-08] MEDS: LEVALBUTEROL 0.63 MG/3 ML NEB NEB SCH ×4 (02:00→20:35)
[2019-09-08 04:56] LABS: Absolute Lymphocytes (CBC) 1.1 K/uL (0.7-4.9); Basophils % 0.1 % (0-1.3); Hematocrit 44.6 % (36.0-45.0); Lymphocytes % 8.4 % (15.3-44.8); MPV 11.2 fL (7.6-11.3); RBC Red Blood Cell Count 4.71 M/uL (3.86-4.86)
[2019-09-08 05:16] LABS: Albumin 2.9 g/dL (3.4-5.0); Bilirubin Total 0.6 mg/dL (0.2-1.0); Phosphorus 3.2 mg/dL (2.5-4.9); Potassium 3.9 mmol/L (3.5-5.1); Protein, Total 7.2 g/dL (6.4-8.2)
[2019-09-08 05:28] LABS: Protime INR 1.66
[2019-09-08 06:57] LABS: Blood Morphology Comment NOT SEEN (NOT SEEN); Platelet Estimate ADEQ; White Blood Cell Scan OK
[2019-09-08] MEDS: SOTALOL HCL 80 MG TAB PO SCH (08:32)
[2019-09-08] MEDS: CEFTRIAXONE/SWI 1gm 1 GM/10 ML SYR IV SCH ×2 (08:32→20:20)
[2019-09-08] MEDS: FUROSEMIDE 20 MG/ 2ML VIAL IV SCH ×2 (08:33→16:51)
[2019-09-08] MEDS: SERTRALINE HCL 50 MG TAB PO SCH (08:33)
[2019-09-08] MEDS: PANTOPRAZOLE 40MG TABLET PO SCH (08:34)
[2019-09-08] MEDS: RIVAROXABAN 20 MG TABLET PO SCH (08:34)
[2019-09-08] MEDS: methocarbamoL 750 MG TAB PO SCH (08:35)
[2019-09-08] MEDS: BUPROPRION HCL S.R. 150MG TAB PO SCH (08:35)
--- NOTE | 2019-09-08 08:56 | P.PN ---
Subjective Date of Service: 09/08/19 Chief Complaint: Exacerbation of pulmonary fibrosis Subjective: Improving (Patient is improving still requiring 65% oxygen is on BiPAP slight cough feeling better) Review of Systems Unremarkable General: Weakness Respiratory: Shortness of Breath Physical Examination - Vital Signs Temperature: 97 F Blood Pressure: 115/86 Pulse: 69 Respirations: 17 Pulse Ox (%): 92 - Physical Exam General: Alert, Oriented x3 Respiratory: Crackles/rales (Crackles bilaterally) Cardiovascular: No edema, Normal S1 S2 - Studies Microbiology Data (last 24 hrs): 09/07/19 02:20 Nasopharnyx Influenza Type A Antigen Screen - Final 09/07/19 02:20 Nasopharnyx Influenza Type B Antigen Screen - Final Assessment & Plan - Problems (Diagnosis) (1) Chronic respiratory failure with hypoxia Current Visit: No Status: Chronic Plan: Patient admitted with exacerbation of pulmonary fibrosis continue with bronchodilators steroids low-dose Lasix labs unremarkable no evidence of sepsis continue with Rocephin increase EPAP on the BiPAP machine given a little bit more peep continue weaning down on O2
--- NOTE | 2019-09-08 10:18 | RAD REPORT ---
EXAM DESCRIPTION: JAHAIRAOscart Single View09/08/2019 9:50 am CLINICAL HISTORY: Respiratory distress COMPARISON: September 07, 2019 FINDINGS: Mild improvement in bilateral pulmonary opacities Moderate residual bilateral interstitial opacities have the appearance of pulmonary fibrosis Heart is mildly enlarged
--- NOTE | 2019-09-08 17:23 | PN ---
Subjective: Currently, patient is lying in bed. She looks comfortable. She is still wearing nonreb reather while she is eating. She continued to be short of breath. She continued to have severe back pain, which is apparently chronic. No chest pain or abdominal pain. Review of Systems: Otherwise negative. Objective: Vital Signs: Currently vital signs; blood pressure 103/68, respiratory rate is 19, pulse 55, temperature 97. General: Patient is alert and oriented x3. Does not look in any distress. HEENT: Atraumatic, normocephalic. PERRLA. Oral mucosa is moist. Neck: Supple. No JVD. No bruits. Chest: With diffuse crackles bilaterally. There is expiratory wheezing. Heart: Regular rate and rhythm. S1, S2 normal. No gallop or murmur. Abdomen: Soft, nontender. No masses. No hepatosplenomegaly. Positive bowel sounds. Obese. Extremities: No clubbing, cyanosis, or edema. No calf tenderness. Neurologic: Grossly intact. Cranial nerve exam, 2 through 12 intact. Normal sensation. Normal ref lexes. Normal muscle strength. Back: With limited range of motion. Laboratory Data: Blood cultures, so far negative. CBC with white blood cells 13.3. CMP was normal except for carbon dioxide 33, BUN of 21, GFR 74, glucose 147, AST 58. Assessment And Plan: 1.Respiratory failure with hypoxemia secondary to pulmonary fibrosis. Patient improving slowly. Sh e will be continued on steroid with high-dose Solu-Medrol at 40 every 8 hours, inhalers, as well as L asix 20 twice a day and BiPAP. Appreciate Dr. Akbar who is adjusting BiPAP. She is also on ceftr iaxone for empiric coverage. 2.Pulmonary edema on x-ray. Continue on diuretics as before. 3.Pulmonary hypertension. Patient used to be before on sildenafil, but she is not anymore. 4.History of irregular heartbeat. On patient's medication list, there is sotalol and anticoagulatio n with Xarelto, but patient states that she is not taking that at home. I will consult Dr. Callahan to find out if patient needs to be on that or not upon discharge because I am not clear why these are o n the medication list if the patient is not taking them. 5.Deep vein thrombosis prophylaxis. No need, patient on Xarelto full dose. 6.Leukocytosis secondary to high-dose steroid. 7.Depression, anxiety. She is much better on Xanax and Zoloft, continue. 8.Back pain, on p.r.n. morphine, chronic. 9.Symptomatic treatment for cough was Robitussin. PAOLA/ERNESTO Voice ID: [id number] Report ID: [id number]
[2019-09-08] MEDS: ALPRAZOLAM 0.25 MG TABLET PO PRN (17:38)
[2019-09-08] MEDS: HYDROCODONE/APAP 5/325 MG TAB PO PRN (20:20)
--- NOTE | 2019-09-08 21:08 | CON ---
Identification: 64-year-old woman. Chief Complaint: Dyspnea. History Of Present Illness: Ms. Esposito has severe pulmonary fibrosis. She is under the care of Pulmon francesca and Cardiology services at [facility]. She had been on lung transplant list, presently is not bec ause of coexisting hepatitis C. She has not received Harvoni or any other antiviral therapy for the hepatitis C as of yet. Her pulmonary fibrosis is idiopathic. She does not seem to have cirrhosis of the liver, but active hepatitis C viremia. Medications: Outpatient medications have been methylprednisolone, bupropion, Protonix, furosemide, m ethocarbamol, meloxicam, hydrocodone, sertraline, albuterol, prednisone, Zofran, and fluticasone. Rizwan kim had also been on sotalol and Xarelto; however, those were stopped recently. She has had atrial fib rillation in the past, but is in sinus rhythm for the most part. She had been on the sildenafil sajan tment regimen for pulmonary hypertension; I believe, she has been on some other pulmonary hypertensio n regimens, but does not list those on her present medicines. Physical Examination: Vital Signs: 5 feet 4, 232 pounds. General: She is obese, alert, oriented, pleasant, not in distress. Lungs: Reveals typical focal rale-type sounds. Heart: Within normal limits. Abdomen: Soft. Extremities: Mild edema, distal pulses palpable. The patient has never been a tobacco user. Impression: The patient's atrial fibrillation. We should probably just treat her with some anticoag ulant. It can be Xarelto or Lovenox while she is here. Dr. Valle resumed sotalol and she seems to be tolerating it, but the patient has not been on it recently and has not had atrial fibrillation. So, I am afraid if we start it now she will just stop it when she goes home. So, we will avoid giving s otalol unless she has recurrent atrial fibrillation. I will ask Dr. Akbar to consider whether she should be on sildenafil or some other pulmonary hypertension drugs. SH/MODL Voice ID: [id number] Report ID: [id number]
[2019-09-08] MEDS: MORPHINE 2 MG/ML SYR IV PRN (22:14)
[2019-09-09] MEDS: METHYLPREDNISOLONE 40 MG INJ IV SCH ×3 (00:32→17:06)
[2019-09-09] MEDS: IPRATROPIUM BROM 0.5MG/2.5ML NEB SCH ×4 (01:55→19:40)
[2019-09-09] MEDS: LEVALBUTEROL 0.63 MG/3 ML NEB NEB SCH ×4 (01:55→19:40)
[2019-09-09 05:16] VITALS: BMI 39.6
[2019-09-09 05:18] LABS: Absolute Lymphocytes (CBC) 1.1 K/uL (0.7-4.9); Basophils % 0.2 % (0-1.3); Hematocrit 45.9 % (36.0-45.0); Lymphocytes % 8.7 % (15.3-44.8); MPV 10.9 fL (7.6-11.3)
[2019-09-09] MEDS: FUROSEMIDE 20 MG/ 2ML VIAL IV SCH (08:10)
[2019-09-09] MEDS: PANTOPRAZOLE 40MG TABLET PO SCH (08:10)
[2019-09-09] MEDS: CEFTRIAXONE/SWI 1gm 1 GM/10 ML SYR IV SCH (08:10)
[2019-09-09] MEDS: methocarbamoL 750 MG TAB PO SCH (08:11)
[2019-09-09] MEDS: BUPROPRION HCL S.R. 150MG TAB PO SCH (08:12)
[2019-09-09] MEDS: RIVAROXABAN 20 MG TABLET PO SCH (08:12)
[2019-09-09] MEDS: SERTRALINE HCL 50 MG TAB PO SCH (08:12)
--- NOTE | 2019-09-09 08:25 | RAD REPORT ---
EXAM DESCRIPTION: RAD - Chest Single View - 09/09/2019 7:03 am CLINICAL HISTORY: Respiratory distress COMPARISON: Chest Single View dated 09/08/2019; Chest Single View dated 09/07/2019 TECHNIQUE: AP portable chest image was obtained 09/09/2019 7:03 am . FINDINGS: Lungs are underinflated. Interstitial and alveolar opacities remain. No further improvemen t noted. Cardiac silhouette remains enlarged. Mediastinal fullness and vascular engorgement remain. N o enlarging pleural effusions seen. Delete select IMPRESSION: Shallow inspiration film with extensive bilateral interstitial and alveolar opacities. Chest is not substantially different from prior day imaging.
--- NOTE | 2019-09-09 09:06 | P.PN ---
Subjective Date of Service: 09/11/19 Chief Complaint: Exacerbation of pulmonary fibrosis Subjective: Improving (Patient is doing better currently on 40% oxygen experiences minimal desat on exertion otherwise no other complaints) Review of Systems Unremarkable Physical Examination - Vital Signs Temperature: 97.2 F Blood Pressure: 113/86 Pulse: 49 Respirations: 18 Pulse Ox (%): 92 - Physical Exam General: Alert, In no apparent distress, Oriented x3 Respiratory: Crackles/rales Cardiovascular: No edema, Regular rate/rhythm Assessment & Plan - Problems (Diagnosis) (1) Chronic respiratory failure with hypoxia Current Visit: No Status: Chronic Plan: Patient is improving transfer to the floor continue with present medications foreign exchange services manager to p.o. levofloxacin chest x-ray shows prominent interstitial change normal echo transfer to the floor. Patient has a history of COPD hypoxic hypercapnic as chronic respiratory failure non stable condition may qualify for noninvasive ventilator
[2019-09-09] MEDS: FUROSEMIDE 20 MG TABLET PO SCH (09:20)
[2019-09-09] MEDS: levoFLOXacin 500 MG TAB PO SCH (09:38)
[2019-09-09] MEDS: HYDROCODONE/APAP 5/325 MG TAB PO PRN ×2 (13:13→17:08)
--- NOTE | 2019-09-09 14:51 | PN ---
Ms. Esposito looks fine. Of coarse, if she starts exerting herself, she gets extremely short of breath. Her problem is mostly the lungs. She is considered not a transplant candidate, so her prognosis is extremely poor. I would consider giving her Adcirca or other medications that can be sometimes prescribed for pulmonary hypertension. Her pulmonary hypertension is not that severe, but her pulmonary fibrosis is quite severe and baring a lung transplant , I think she will continue to have a very poor prognosis. JULIO CESAR/ERNESTO Voice ID: [id number] Report ID: [id number] MTDShar
--- NOTE | 2019-09-09 16:45 | PN ---
Subjective: Currently, patient is sitting in the chair. She looks better. She continued to be on t he BiPAP with difficulty breathing. There was no nausea, no vomiting. No chest pain. No abdominal pain. No fever or chills overnight. Objective: Vital Signs: Blood pressure is 106/70, respiratory rate 20, pulse 84, temperature 97.2. General: Patient is alert and oriented x3. Does not look in any distress. HEENT: Atraumatic, normocephalic. PERRLA. Oral mucosa is moist. Neck: Supple. No JVD. No bruits. Chest: Diffuse crackles bilateral. There is mild expiratory wheezing. Heart: Regular rate and rhythm. S1, S2 normal. No gallop or murmur. Abdomen: Soft, nontender. No masses. No hepatosplenomegaly. Obese. Positive bowel sounds. Extremities: No clubbing, cyanosis, or edema. No calf tenderness. Neurologic: Grossly intact. Cranial nerve exam 2 through 12 intact. Normal sensation. Normal refl exes. Normal muscle strength. Laboratory Data: Today, showed CBC is normal except for white blood cells of 13, hematocrit of 45.9. Chemistry was normal, except for carbon dioxide 34, BUN of 34, GFR 57, glucose 165. Assessment And Plan: 1.Respiratory failure with hypoxemia secondary to pulmonary fibrosis. Patient continued to have dys pnea with diffuse crackles on exam, but she is improving slowly. We will continue patient on high do se of steroid with Solu-Medrol at 40 every 8 hours as well as Lasix 20 mg twice a day and BiPAP. Aga in, appreciate Dr. Akbar's input. Patient is on Levaquin 500 mg daily empirically. 2.Pulmonary edema on chest x-ray. The patient's x-ray today showed extensive bilateral interstitial alveolar opacities, which is not that different from the day before. Continue patient on Lasix. 3.Pulmonary hypertension. Patient used to be on sildenafil before Dr. Akbar following. 4.History of atrial fibrillation. Cardiology consult requested. Appreciate Dr. Callahan input. Dr. Callahan would like to continue patient on anticoagulation with Xarelto while stopping sotalol as carmen nt is currently not in atrial fibrillation. 5.Deep vein thrombosis prophylaxis. No need as patient is on Xarelto. 6.Leukocytosis secondary to steroid. 7.Back pain, on p.r.n. morphine, which is chronic. 8.Depression and anxiety, doing well on Zoloft and Xanax, continue. 9.Symptomatic treatment for cough with Robitussin. PAOLA/ERNESTO Voice ID: [id number] Report ID: [id number]
[2019-09-09] MEDS: ALPRAZOLAM 0.25 MG TABLET PO PRN (18:52)
[2019-09-10] MEDS: METHYLPREDNISOLONE 40 MG INJ IV SCH (00:47)
[2019-09-10] MEDS: LEVALBUTEROL 0.63 MG/3 ML NEB NEB SCH ×4 (01:55→19:30)
[2019-09-10] MEDS: IPRATROPIUM BROM 0.5MG/2.5ML NEB SCH ×4 (01:55→19:30)
[2019-09-10] MEDS: ALPRAZOLAM 0.25 MG TABLET PO PRN ×3 (02:20→22:15)
--- NOTE | 2019-09-10 08:09 | RAD REPORT ---
EXAM DESCRIPTION: Marilyn Single View09/10/2019 5:32 am CLINICAL HISTORY: Respiratory distress COMPARISON: September 09 FINDINGS: Mild worsening in diffuse bilateral pulmonary opacities. The heart is mildly enlarged IMPRESSION: Mild worsening in diffuse bilateral pulmonary opacities may represent pulmonary edema haque perimposed over pulmonary fibrosis
[2019-09-10 09:42] LABS: Arterial Blood Carboxyhemoglob 1.3 % (0-1.5); Blood Gas Oxyhemoglobin 84.2 % (94-97)
[2019-09-10] MEDS: BUPROPRION HCL S.R. 150MG TAB PO SCH (10:08)
[2019-09-10] MEDS: methocarbamoL 750 MG TAB PO SCH (10:08)
[2019-09-10] MEDS: FUROSEMIDE 20 MG TABLET PO SCH (10:09)
[2019-09-10] MEDS: RIVAROXABAN 20 MG TABLET PO SCH (10:09)
[2019-09-10] MEDS: levoFLOXacin 500 MG TAB PO SCH (10:09)
[2019-09-10] MEDS: SERTRALINE HCL 50 MG TAB PO SCH (10:09)
[2019-09-10] MEDS: PANTOPRAZOLE 40MG TABLET PO SCH (10:09)
[2019-09-10] MEDS: predniSONE 20 MG TAB PO SCH ×2 (10:12→20:23)
--- NOTE | 2019-09-10 10:39 | P.PN ---
Subjective Date of Service: 09/10/19 Chief Complaint: Exacerbation of pulmonary fibrosis Subjective: No new changes, Improving Review of Systems 10-point ROS is otherwise unremarkable Physical Examination - Vital Signs Temperature: 97 F Blood Pressure: 130/70 Pulse: 65 Respirations: 20 Pulse Ox (%): 93 - Physical Exam General: Alert, In no apparent distress, Oriented x3 HEENT: Atraumatic, Normocephalic Neck: Supple Respiratory: Diminished, Crackles/rales, Expiratory wheezes Cardiovascular: No edema, Regular rate/rhythm Capillary refill: <2 Seconds Gastrointestinal: Soft and benign, Non-distended Musculoskeletal: No swelling, No contractures Integumentary: No rashes Neurological: Normal speech, Normal strength at 5/5 x4 extr Lymphatics: No axilla or inguinal lymphadenopathy Urinary: Other (No bladder distention) External genitalia: Deferred Rectal: Deferred Assessment & Plan - Problems (Diagnosis) (1) Chronic respiratory failure with hypoxia Current Visit: No Status: Chronic (2) Pulmonary fibrosis Current Visit: No Status: Chronic (3) Pulmonary hypertension Current Visit: No Status: Chronic Plan: Acute Respiratory failure with hypoxemia secondary to pulmonary fibrosis. Patient continued to have dyspnea with diffuse crackles on exam, but she is improving slowly. will continue patient on steroid Was on BiPAP. on oxygen supplementation Appreciate help from Dr. Akbar' Patient is on Levaquin 500 mg daily empirically. Pulmonary edema on chest x-ray. Continue patient on Lasix. Pulmonary hypertension. Patient used to be on sildenafil before Dr. Akbar following. History of atrial fibrillation. Cardiology consult Appreciated . continue patient on anticoagulation with Xarelto while stopping sotalol as patient is currently not in atrial fibrillation. Back pain, on p.r.n. morphine, which is chronic. Depression and anxiety, doing well on Zoloft and Xanax, continue. Discharge Plan: Home Plan to discharge in: 48 Hours Time Spent Managing Pts Care (In Minutes): 45
[2019-09-10] MEDS: HYDROCODONE/APAP 5/325 MG TAB PO PRN ×3 (12:45→23:46)
[2019-09-10] MEDS: GUAIFENESIN/DM 5 ML UCUP PO PRN (19:18)
[2019-09-10] MEDS: ONDANSETRON 4 MG/2 ML VIAL IV PRN (22:12)
[2019-09-11] MEDS: LEVALBUTEROL 0.63 MG/3 ML NEB NEB SCH ×4 (01:30→19:53)
[2019-09-11] MEDS: IPRATROPIUM BROM 0.5MG/2.5ML NEB SCH ×4 (01:30→19:53)
--- NOTE | 2019-09-11 08:51 | P.PN ---
Subjective Date of Service: 09/11/19 Chief Complaint: Exacerbation of pulmonary fibrosis chronic respiratory failure COPD Patient's condition is stable she is dyspnea on minimal exertion acquiring a lot of oxygen she also has dyspnea on mild exertion in the hospital previous hospitalization hypoxic hypercapnic no evidence of sepsis Review of Systems General: Weakness Respiratory: Cough, Shortness of Breath Physical Examination - Vital Signs Temperature: 97.2 F Blood Pressure: 113/86 Pulse: 49 Respirations: 18 Pulse Ox (%): 92 - Physical Exam General: Alert, Oriented x3, Mild distress Respiratory: Crackles/rales (Extensive bilateral crackles) Cardiovascular: No edema, Regular rate/rhythm Assessment & Plan - Problems (Diagnosis) (1) Chronic respiratory failure with hypoxia Current Visit: No Status: Chronic Plan: Patient admitted with respiratory failure which is chronic current in stable condition combination of pulmonary fibrosis COPD she has hypoxic hypercapnic doubt infection complains of some edema at spironolactone continue with steroids antibiotics the evaluate for noninvasive ventilator at home change to nasal cannula oxygen titrate sat to 90% do arterial blood gases patient complaining of pain increase the hydrocodone she takes 10 mg at home (2) Hepatitis Current Visit: Yes Status: Acute Plan: Patient was recently diagnosed with hepatitis the [facility] console for treatment
[2019-09-11] MEDS: SERTRALINE HCL 50 MG TAB PO SCH (09:18)
[2019-09-11] MEDS: HYDROCODONE/APAP 10/325 TAB PO PRN ×3 (09:18→21:43)
[2019-09-11] MEDS: methocarbamoL 750 MG TAB PO SCH (09:18)
[2019-09-11] MEDS: SPIRONOLACTONE 25 MG TABLET PO SCH ×2 (09:19→20:45)
[2019-09-11] MEDS: predniSONE 20 MG TAB PO SCH ×2 (09:19→20:45)
[2019-09-11] MEDS: levoFLOXacin 500 MG TAB PO SCH (09:19)
[2019-09-11] MEDS: PANTOPRAZOLE 40MG TABLET PO SCH (09:19)
[2019-09-11] MEDS: RIVAROXABAN 20 MG TABLET PO SCH (09:20)
[2019-09-11] MEDS: BUPROPRION HCL S.R. 150MG TAB PO SCH (09:20)
--- NOTE | 2019-09-11 09:21 | P.PN ---
Subjective Date of Service: 09/11/19 Chief Complaint: Exacerbation of pulmonary fibrosis chronic respiratory failure COPD Subjective: Improving Review of Systems 10-point ROS is otherwise unremarkable Physical Examination - Vital Signs Temperature: 97.2 F Blood Pressure: 113/86 Pulse: 49 Respirations: 18 Pulse Ox (%): 92 - Physical Exam General: Alert, In no apparent distress HEENT: Atraumatic, Normocephalic Neck: Supple Respiratory: Diminished, Crackles/rales, Expiratory wheezes Cardiovascular: No edema, Regular rate/rhythm Capillary refill: <2 Seconds Gastrointestinal: Normal bowel sounds, Soft and benign, Non-distended Musculoskeletal: No swelling Integumentary: No rashes Neurological: Normal speech, Normal strength at 5/5 x4 extr Lymphatics: No axilla or inguinal lymphadenopathy Urinary: Other (No Bladder distention) External genitalia: Deferred Rectal: Deferred Assessment & Plan - Problems (Diagnosis) (1) Chronic respiratory failure with hypoxia Current Visit: No Status: Chronic (2) Pulmonary fibrosis Current Visit: No Status: Chronic (3) Pulmonary hypertension Current Visit: No Status: Chronic Plan: Acute Respiratory failure with hypoxemia secondary to pulmonary fibrosis. Slowly improving will continue patient on steroid Was on BiPAP. on oxygen supplementation Appreciate help from Dr. Akbar' Patient is on Levaquin 500 mg daily Pulmonary edema on chest x-ray. Continue patient on Lasix. Pulmonary hypertension. Patient used to be on sildenafil before Appreciate help from cardiology and pulmonology History of atrial fibrillation. Cardiology consult Appreciated . continue patient on anticoagulation with Xarelto while stopping sotalol as patient is currently not in atrial fibrillation. Back pain, on p.r.n. morphine, which is chronic. Depression and anxiety, doing well on Zoloft and Xanax, continue. Awaiting further improvement in the clinical condition Discussed with case management
[2019-09-11] MEDS: FUROSEMIDE 20 MG TABLET PO SCH (09:23)
[2019-09-11 10:34] LABS: Arterial Blood Carboxyhemoglob 1.6 % (0-1.5); Blood Gas Oxyhemoglobin 89.1 % (94-97)
[2019-09-11 11:49] LABS: Ferritin 549.1 ng/mL (8-388)
--- NOTE | 2019-09-11 12:29 | PN ---
Date of Progress Note: 09/11/[address] Guerrero on 09/07/2019. Ms. Esposito has been admitted with shortness of breath. She has pulmonary hypertension, severe pulmonar y fibrosis. She is not a candidate for lung transplant because of her pulmonary fibrosis. Had episo de of atrial fibrillation that has resolved. She is in sinus rhythm. She is on Xarelto. Right now, continues to have some issues with fluid retention, slight pulmonary edema, slight pedal edema. Jose arently, she had tried Adcirca in the past and did not tolerate it. Echocardiogram showed normal eje ction fraction of 76%. Dr. Akbar and I discussed her case. She may be going home eventually on B iPAP. She does not need to be on any antiarrhythmic for now. The Xarelto is recommended. I think i ncreasing her Lasix dose may be appropriate. LENNIE/ERNESTO Voice ID: [id number] Report ID: [id number]
[2019-09-11] MEDS ORDERED: RIVAROXABAN 20 MG TABLET PO SCH (17:00)
[2019-09-11] MEDS: ALPRAZOLAM 0.25 MG TABLET PO PRN (20:45)
[2019-09-11] MEDS: GUAIFENESIN/DM 5 ML UCUP PO PRN (20:46)
[2019-09-11 22:08] LABS: Barbiturates NEGATIVE (NEGATIVE); Benzodiazepines POSITIVE (NEGATIVE); Cocaine NEGATIVE (NEGATIVE); METHAMPHETAM NEGATIVE (NEGATIVE); Methadone NEGATIVE (NEGATIVE); Opiates POSITIVE (NEGATIVE); Phencyclidine NEGATIVE (NEGATIVE); THC Cannibis NEGATIVE (NEGATIVE)
[2019-09-12 00:10] LABS: Specific Gravity 1.025 (1.005-1.030)
[2019-09-12] MEDS: ONDANSETRON 4 MG/2 ML VIAL IV PRN ×2 (00:12→09:42)
[2019-09-12] MEDS: LEVALBUTEROL 0.63 MG/3 ML NEB NEB SCH ×4 (01:25→19:35)
[2019-09-12] MEDS: IPRATROPIUM BROM 0.5MG/2.5ML NEB SCH ×4 (01:25→19:35)
[2019-09-12] MEDS: HYDROCODONE/APAP 10/325 TAB PO PRN ×4 (03:41→21:01)
[2019-09-12 06:04] LABS: Absolute Lymphocytes (CBC) 1.2 K/uL (0.7-4.9); Basophils % 0.1 % (0-1.3); Hematocrit 45.6 % (36.0-45.0); Lymphocytes % 12.9 % (15.3-44.8); MPV 11.2 fL (7.6-11.3); RBC Red Blood Cell Count 4.76 M/uL (3.86-4.86)
[2019-09-12 06:37] LABS: Potassium 4.1 mmol/L (3.5-5.1)
--- NOTE | 2019-09-12 08:18 | P.PN ---
Subjective Date of Service: 09/12/19 Chief Complaint: Exacerbation of pulmonary fibrosis chronic respiratory failure COPD No new chain still complains of dyspnea on minimal exertion Review of Systems Respiratory: Cough, Shortness of Breath Physical Examination - Vital Signs Temperature: 97.2 F Blood Pressure: 113/86 Pulse: 49 Respirations: 18 Pulse Ox (%): 92 - Physical Exam General: Alert, Oriented x3 Respiratory: Crackles/rales Cardiovascular: No edema - Studies Microbiology Data (last 24 hrs): 09/07/19 03:00 Blood - Blood Aerobic Blood Culture - Final No growth in 5 days. 09/07/19 03:00 Blood - Blood Anaerobic Blood Culture - Final No growth in 5 days. 09/07/19 02:15 Blood - Blood Aerobic Blood Culture - Final No growth in 5 days. 09/07/19 02:15 Blood - Blood Anaerobic Blood Culture - Final No growth in 5 days. Assessment & Plan - Problems (Diagnosis) (1) Chronic respiratory failure with hypoxia Current Visit: No Status: Chronic Plan: Patient has chronic respiratory failure from a pulmonary fibrosis apparently she qualifies for a noninvasive ventilator no change in change to nasal cannula in for sat 85% to 90/wants a noninvasive ventilator as been setup patient can be discharged home seen by GI patient has has end-stage renal disease the qualify for a lung transplant once hepatitis as treated plan for discharge (2) Hepatitis Current Visit: Yes Status: Acute Plan: Patient was recently diagnosed with hepatitis the [facility] console for treatment
[2019-09-12] MEDS: BUPROPRION HCL S.R. 150MG TAB PO SCH (09:00)
--- NOTE | 2019-09-12 09:26 | P.PN ---
Subjective Date of Service: 09/12/19 Chief Complaint: Exacerbation of pulmonary fibrosis chronic respiratory failure COPD Subjective: No new changes (Still has shortness of breath Denies any chest pain No fever no chills) Review of Systems 10-point ROS is otherwise unremarkable Physical Examination - Vital Signs Temperature: 97.2 F Blood Pressure: 113/86 Pulse: 49 Respirations: 18 Pulse Ox (%): 92 - Physical Exam General: Alert, Oriented x3, Mild distress HEENT: Atraumatic, Normocephalic Neck: Supple Respiratory: Diminished, Crackles/rales, Expiratory wheezes Cardiovascular: Normal pulses, Regular rate/rhythm Capillary refill: <2 Seconds Gastrointestinal: Soft and benign, W/out hepatosplenomegaly Musculoskeletal: No clubbing Integumentary: No rashes, No breakdown Neurological: Normal speech, Normal strength at 5/5 x4 extr Lymphatics: No axilla or inguinal lymphadenopathy Urinary: Other (No bladder distention) External genitalia: Deferred Rectal: Deferred - Studies Microbiology Data (last 24 hrs): 09/07/19 03:00 Blood - Blood Aerobic Blood Culture - Final No growth in 5 days. 09/07/19 03:00 Blood - Blood Anaerobic Blood Culture - Final No growth in 5 days. 09/07/19 02:15 Blood - Blood Aerobic Blood Culture - Final No growth in 5 days. 09/07/19 02:15 Blood - Blood Anaerobic Blood Culture - Final No growth in 5 days. Assessment & Plan - Problems (Diagnosis) (1) Chronic respiratory failure with hypoxia Current Visit: No Status: Chronic (2) Pulmonary fibrosis Current Visit: No Status: Chronic (3) Pulmonary hypertension Current Visit: No Status: Chronic Plan: Acute Respiratory failure with hypoxemia secondary to pulmonary fibrosis. Slowly improving will continue patient on steroid Was on BiPAP. on oxygen supplementation with Venti mask now Appreciate help from Dr. Akbar' Pulmonary edema on chest x-ray. Continue patient on Lasix. Will get a repeat chest x-ray Pulmonary hypertension. Patient used to be on sildenafil before Appreciate help from cardiology and pulmonology History of atrial fibrillation. Cardiology consult Appreciated . continue patient on anticoagulation with Xarelto while stopping sotalol as patient is currently not in atrial fibrillation. Hepatitis Awaiting further recommendations from GI hepatitis panel still pending` Back pain, on p.r.n. morphine, which is chronic. Depression and anxiety, doing well on Zoloft and Xanax, continue. Awaiting further improvement in the clinical condition Discussed with case management Patient may need BiPAP at home Time Spent Managing Pts Care (In Minutes): 42
[2019-09-12] MEDS: methocarbamoL 750 MG TAB PO SCH (09:33)
[2019-09-12] MEDS: SERTRALINE HCL 50 MG TAB PO SCH (09:34)
[2019-09-12] MEDS: SPIRONOLACTONE 25 MG TABLET PO SCH ×2 (09:34→21:00)
[2019-09-12] MEDS: predniSONE 10 MG TAB PO SCH ×2 (09:34→21:01)
[2019-09-12] MEDS: FUROSEMIDE 20 MG TABLET PO SCH (09:35)
[2019-09-12] MEDS: PANTOPRAZOLE 40MG TABLET PO SCH (09:35)
--- NOTE | 2019-09-12 11:37 | RAD REPORT ---
EXAM DESCRIPTION: US - Abdomen Exam Complete - 09/12/2019 10:47 am CLINICAL HISTORY: Abdominal pain. Hepatitis C COMPARISON: No comparisons FINDINGS: The liver is normal in size, shape and echotexture. No focal liver lesions or intrahepatic biliary dilatation is seen. The gallbladder demonstrates no gallstones, pericholecystic fluid or gallbladder wall thickening. Co mmon bile duct is normal in caliber measuring 4 mm. Both kidneys are normal in size, shape and echotexture. No hydronephrosis, focal lesion of concern or perinephric fluid. Several benign renal cysts suspected, largest on the left measuring 18 mm. The spleen is normal in size measuring 11-12 cm. The pancreas and aorta are obscured by bowel gas. The visualized aspects of the IVC are grossly normal. IMPRESSION: Unremarkable study except for limited assessment of the pancreas and aorta due to bowel gas. Benign liver cysts.
[2019-09-12] MEDS: RIVAROXABAN 20 MG TABLET PO SCH (17:12)
[2019-09-12] MEDS: ALPRAZOLAM 0.25 MG TABLET PO PRN (23:48)
[2019-09-13] MEDS: IPRATROPIUM BROM 0.5MG/2.5ML NEB SCH ×4 (02:45→19:58)
[2019-09-13] MEDS: LEVALBUTEROL 0.63 MG/3 ML NEB NEB SCH ×4 (02:45→19:58)
[2019-09-13] MEDS: HYDROCODONE/APAP 10/325 TAB PO PRN ×4 (03:09→20:42)
[2019-09-13 05:53] LABS: Absolute Lymphocytes (CBC) 1.4 K/uL (0.7-4.9); Basophils % 0.2 % (0-1.3); Hematocrit 43.3 % (36.0-45.0); Lymphocytes % 13.1 % (15.3-44.8); MPV 10.8 fL (7.6-11.3); RBC Red Blood Cell Count 4.52 M/uL (3.86-4.86)
[2019-09-13 06:16] LABS: Albumin 2.6 g/dL (3.4-5.0); Bilirubin Direct 0.2 mg/dL (0-0.2); Bilirubin Total 0.7 mg/dL (0.2-1.0); Potassium 4.4 mmol/L (3.5-5.1); Protein, Total 6.3 g/dL (6.4-8.2)
[2019-09-13] MEDS: PANTOPRAZOLE 40MG TABLET PO SCH (08:43)
[2019-09-13] MEDS: FUROSEMIDE 20 MG TABLET PO SCH (08:44)
[2019-09-13] MEDS: methocarbamoL 750 MG TAB PO SCH (08:44)
[2019-09-13] MEDS: SPIRONOLACTONE 25 MG TABLET PO SCH ×2 (08:45→20:43)
[2019-09-13] MEDS: predniSONE 10 MG TAB PO SCH ×2 (08:45→20:45)
[2019-09-13] MEDS: SERTRALINE HCL 50 MG TAB PO SCH (08:46)
[2019-09-13] MEDS: BUPROPRION HCL S.R. 150MG TAB PO SCH (08:47)
--- NOTE | 2019-09-13 09:47 | P.PN ---
Subjective Date of Service: 09/13/19 Chief Complaint: Exacerbation of pulmonary fibrosis chronic respiratory failure COPD Subjective: Improving, Other (Complains of swelling in the right lower extremity ) Review of Systems 10-point ROS is otherwise unremarkable Physical Examination - Vital Signs Temperature: 97.1 F Blood Pressure: 107/70 Pulse: 86 Respirations: 18 Pulse Ox (%): 94 - Physical Exam General: Alert, In no apparent distress, Obese HEENT: Atraumatic, Normocephalic Neck: Supple Respiratory: Diminished, Crackles/rales, Expiratory wheezes Cardiovascular: Normal pulses, Regular rate/rhythm Capillary refill: <2 Seconds Gastrointestinal: Soft and benign, W/out hepatosplenomegaly Musculoskeletal: No clubbing, Swelling Integumentary: No breakdown Neurological: Normal speech, Normal strength at 5/5 x4 extr Lymphatics: No axilla or inguinal lymphadenopathy Urinary: Other (No bladder distention) External genitalia: Deferred Rectal: Deferred - Studies Microbiology Data (last 24 hrs): 09/07/19 03:00 Blood - Blood Aerobic Blood Culture - Final No growth in 5 days. 09/07/19 03:00 Blood - Blood Anaerobic Blood Culture - Final No growth in 5 days. Assessment & Plan - Problems (Diagnosis) (1) Chronic respiratory failure with hypoxia Current Visit: No Status: Chronic (2) Pulmonary fibrosis Current Visit: No Status: Chronic (3) Pulmonary hypertension Current Visit: No Status: Chronic Plan: Acute Respiratory failure with hypoxemia secondary to pulmonary fibrosis. Slowly improving will continue patient on steroid Was on BiPAP. on oxygen supplementation Appreciate help from Dr. Akbar' Patient may need home BiPAP Social service consulted Possibly seek home once BiPAP is arranged Pulmonary edema on chest x-ray. Continue patient on Lasix. Pulmonary hypertension. Patient used to be on sildenafil before Appreciate help from cardiology and pulmonology History of atrial fibrillation. Cardiology consult Appreciated . continue patient on anticoagulation with Xarelto while stopping sotalol as patient is currently not in atrial fibrillation. Hepatitis Awaiting further recommendations from GI hepatitis panel still pending` Back pain, on p.r.n. morphine, which is chronic. Depression and anxiety, doing well on Zoloft and Xanax, continue. Swelling in the right lower extremity Will get a Doppler to rule out DVT Patient on Xarelto Awaiting further improvement in the clinical condition Discussed with case management Patient may need BiPAP at home correctional case manager consult for placement of BiPAP Dc home once BiPAP is arranged
--- NOTE | 2019-09-13 11:17 | RAD REPORT ---
EXAM DESCRIPTION: US - Extremity Venous Uni Ltd - 09/13/2019 11:06 am CLINICAL HISTORY: swelling Leg swelling and edema. COMPARISON: EXT VENOUS W COMPRESSION KIAN dated 01/16/2014 FINDINGS: Right lower extremity venous system was interrogated with Doppler technique. Normal flow, compressibility and augmentation was noted. There is no DVT present. IMPRESSION: No evidence of right lower extremity deep venous thrombosis.
[2019-09-13] MEDS: RIVAROXABAN 20 MG TABLET PO SCH (16:44)
[2019-09-13 18:26] LABS: Hepatitis C Virus RNA (PCR)log 6.83 log IU/mL
[2019-09-13] MEDS: ALPRAZOLAM 0.25 MG TABLET PO PRN (20:42)
[2019-09-13] MEDS: ONDANSETRON 4 MG/2 ML VIAL IV PRN (23:33)
[2019-09-13] MEDS: GUAIFENESIN/DM 5 ML UCUP PO PRN (23:33)
[2019-09-14] MEDS: IPRATROPIUM BROM 0.5MG/2.5ML NEB SCH ×4 (01:38→20:25)
[2019-09-14] MEDS: LEVALBUTEROL 0.63 MG/3 ML NEB NEB SCH ×4 (01:38→20:25)
[2019-09-14] MEDS: HYDROCODONE/APAP 10/325 TAB PO PRN ×4 (02:34→20:51)
[2019-09-14 05:51] LABS: HBsAG Nonreactive (Nonreactive)
[2019-09-14] MEDS: FUROSEMIDE 20 MG TABLET PO SCH (08:42)
[2019-09-14] MEDS: SPIRONOLACTONE 25 MG TABLET PO SCH ×2 (08:42→20:51)
[2019-09-14] MEDS: predniSONE 10 MG TAB PO SCH ×2 (08:43→20:52)
[2019-09-14] MEDS: methocarbamoL 750 MG TAB PO SCH (08:43)
[2019-09-14] MEDS: SERTRALINE HCL 50 MG TAB PO SCH (08:43)
[2019-09-14] MEDS: PANTOPRAZOLE 40MG TABLET PO SCH (08:43)
[2019-09-14] MEDS: BUPROPRION HCL S.R. 150MG TAB PO SCH (08:43)
--- NOTE | 2019-09-14 11:29 | P.PN ---
Subjective Date of Service: 09/14/19 Chief Complaint: Exacerbation of pulmonary fibrosis chronic respiratory failure COPD Subjective: No new changes Review of Systems 10-point ROS is otherwise unremarkable Physical Examination - Vital Signs Temperature: 97.2 F Blood Pressure: 112/65 Pulse: 90 Respirations: 18 Pulse Ox (%): 89 - Physical Exam General: Alert, In no apparent distress HEENT: Atraumatic, Normocephalic Neck: Supple Respiratory: Diminished, Crackles/rales, Expiratory wheezes Cardiovascular: No edema, Regular rate/rhythm Capillary refill: <2 Seconds Gastrointestinal: Soft and benign Musculoskeletal: No clubbing, Swelling Integumentary: No rashes Neurological: Normal speech, Normal strength at 5/5 x4 extr Lymphatics: No axilla or inguinal lymphadenopathy External genitalia: Deferred Rectal: Deferred - Studies Laboratory Last Values WBC 10.7 K/uL (4.3-10.9) D 09/13/19 05:24 RBC 4.52 M/uL (3.86-4.86) 09/13/19 05:24 Hgb 14.5 g/dL (12.0-15.0) 09/13/19 05:24 Hct 43.3 % (36.0-45.0) 09/13/19 05:24 MCV 95.7 fL (80-100) 09/13/19 05:24 MCH 32.1 pg (27.0-35.0) 09/13/19 05:24 MCHC 33.5 g/dL (32.0-36.0) 09/13/19 05:24 RDW 13.5 % (12.1-15.2) 09/13/19 05:24 Plt Count 158 K/uL (152-406) 09/13/19 05:24 MPV 10.8 fL (7.6-11.3) 09/13/19 05:24 Neutrophils % 75.0 % (41.7-73.7) H 09/13/19 05:24 Lymphocytes % 13.1 % (15.3-44.8) L 09/13/19 05:24 Monocytes % 6.7 % (3.3-12.3) 09/13/19 05:24 Eosinophils % 5.0 % (0-4.4) H 09/13/19 05:24 Basophils % 0.2 % (0-1.3) 09/13/19 05:24 Absolute Neutrophils 8.1 K/uL (1.8-8.0) H 09/13/19 05:24 Absolute Lymphocytes 1.4 K/uL (0.7-4.9) 09/13/19 05:24 Absolute Monocytes 0.7 K/uL (0.1-1.3) 09/13/19 05:24 Absolute Eosinophils 0.5 K/uL (0-0.5) 09/13/19 05:24 Absolute Basophils 0.0 K/uL (0-0.5) 09/13/19 05:24 Morphology Comment Not seen (NOT SEEN) 09/08/19 04:16 PT 19.2 SECONDS (9.5-12.5) H 09/08/19 04:16 INR 1.66 09/08/19 04:16 APTT 32.2 SECONDS (24.3-36.9) 09/08/19 04:16 D-Dimer 457 FEUng/mL (<500) 09/07/19 08:25 pH 7.43 (7.35-7.45) 09/11/19 09:40 pCO2 50.9 mmHG (35-45) H 09/11/19 09:40 pO2 59.9 mmHG (75-100) L 09/11/19 09:40 HCO3 33.4 mmol/L (22-28) H 09/11/19 09:40 Base Excess 8.9 mmol/L 09/11/19 09:40 Oxyhemoglobin 89.1 % (94-97) L 09/11/19 09:40 ABG O2 Sat (Measured) 91.0 % (92-98.5) L 09/11/19 09:40 ABG Carboxyhemoglobin 1.6 % (0-1.5) H 09/11/19 09:40 ABG Methemoglobin 0.5 % (0-1.5) 09/11/19 09:40 Other Total Hgb 15.8 g/dl (12-18) 09/11/19 09:40 Inspired O2 44.0 % 09/11/19 09:40 Sodium 138 mmol/L (136-145) 09/13/19 05:24 Potassium 4.4 mmol/L (3.5-5.1) 09/13/19 05:24 Chloride 100 mmol/L (98-107) 09/13/19 05:24 Carbon Dioxide 34 mmol/L (21-32) H 09/13/19 05:24 BUN 19 mg/dL (7-18) H 09/13/19 05:24 Creatinine 0.81 mg/dL (0.55-1.3) 09/13/19 05:24 Estimated GFR 72 mL/min (=/>90) L 09/13/19 05:24 Glucose 186 mg/dL (74-106) H 09/13/19 05:24 POC Glucose 219 mg/dl (65-120) H 09/07/19 08:08 Specific [place] 1.025 (1.005-1.030) 09/11/19 21:10 Calcium 8.4 mg/dL (8.5-10.1) L 09/13/19 05:24 Phosphorus 3.2 mg/dL (2.5-4.9) 09/08/19 04:16 Magnesium 2.0 mg/dL (1.8-2.4) 09/08/19 04:16 Iron 202.0 ug/dL (50-170) H 09/11/19 11:15 TIBC 314 ug/dL (250-460) 09/11/19 11:15 Transferrin 224 mg/dL (200-360) 09/11/19 11:15 Transferrin % Sat 64.3 % (20.0-50.0) H 09/11/19 11:15 Ferritin 549.1 ng/mL (8-388) H 09/11/19 11:15 Total Bilirubin 0.7 mg/dL (0.2-1.0) 09/13/19 05:24 Direct Bilirubin 0.2 mg/dL (0-0.2) 09/13/19 05:24 AST 103 U/L (15-37) H 09/13/19 05:24 ALT 133 U/L (12-78) H 09/13/19 05:24 Alkaline Phosphatase 104 U/L (45-117) 09/13/19 05:24 Rapid Troponin I < 0.02 ng/mL (0.0-0.045) 09/07/19 02:15 Troponin I < 0.02 ng/mL (0.0-0.045) 09/07/19 14:55 NT-Pro-B Natriuret Pep 1546 pg/mL (<125) H 09/07/19 08:25 Serum Total Protein 6.3 g/dL (6.4-8.2) L 09/13/19 05:24 Albumin 2.6 g/dL (3.4-5.0) L 09/13/19 05:24 Globulin 3.7 g/dL (2.3-3.5) H 09/13/19 05:24 Albumin/Globulin Ratio 0.7 (1.1-1.8) L 09/13/19 05:24 [id number] 146 mg/dL (83-199) 09/11/19 11:15 Ceruloplasmin 24 mg/dL (18-53) 09/11/19 11:15 Urine Color Dk yellow 09/07/19 15:47 Urine Appearance Turbid 09/07/19 15:47 Urine pH 6.0 (5.0-7.0) 09/07/19 15:47 Ur Specific [place] 1.025 (1.005-1.030) 09/07/19 15:47 Glucose (UA)(Auto) Negative (NEG) 09/07/19 15:47 Urine Ketones Negative (NEG) 09/07/19 15:47 Urine Blood 3+ (NEG) H 09/07/19 15:47 Urine Nitrite Negative (NEG) 09/07/19 15:47 Urine Bilirubin Negative (NEG) 09/07/19 15:47 Urine Urobilinogen 1.0 mg/dL (0.2-1.0) 09/07/19 15:47 Ur Leukocyte Esterase 2+ (NEG) H 09/07/19 15:47 Urine RBC 20-50 /HPF (NONE SEEN) H 09/07/19 15:47 Urine WBC 10-20 /HPF (<5) H 09/07/19 15:47 Ur Squamous Epith Cells <5 /HPF (NONE SEEN) 09/07/19 15:47 Amorphous Sediment 2+ /HPF (NONE SEEN) H 09/07/19 15:47 Urine Bacteria 20-50 /HPF (<20) H 09/07/19 15:47 Urine Mucus 2+ /HPF (NONE SEEN) 09/07/19 15:47 Urine Culture Reflexed Reflexed 09/07/19 15:47 Urine Total Protein Trace (NEG) 09/07/19 15:47 Urine Test Neg (NEG) 09/11/19 21:10 Digoxin 0.10 ng/mL (0.80-2.00) L 09/07/19 02:15 Opiates Screen Positive (NEGATIVE) H 09/11/19 21:10 Methadone Screen Negative (NEGATIVE) 09/11/19 21:10 Ur Barbiturates Screen Negative (NEGATIVE) 09/11/19 21:10 Ur Phencyclidine Scrn Negative (NEGATIVE) 09/11/19 21:10 Amphetamines Screen Negative (NEGATIVE) 09/11/19 21:10 Benzodiazepines Screen Positive (NEGATIVE) H 09/11/19 21:10 Cocaine Screen Negative (NEGATIVE) 09/11/19 21:10 Ur THC Screen Negative (NEGATIVE) 09/11/19 21:10 JAY Screen Positive (Negative) H 09/11/19 11:15 JAY Titer 1:640 (Negative) H 09/11/19 11:15 JAY Titer 2 ACCOUNTANT 09/11/19 11:15 JAY Titer 3 ACCOUNTANT 09/11/19 11:15 JAY Pattern Report 09/11/19 11:15 JAY Pattern 2 ACCOUNTANT 09/11/19 11:15 JAY Pattern 3 ACCOUNTANT 09/11/19 11:15 Anti-Mitochondrial Ab <=20.0 U (<=20.0) 09/11/19 11:15 Anti-Smooth Muscle Ab <20 U (<20) 09/11/19 11:15 Hepatitis A IgM Ab Nonreactive 09/11/19 09:46 Hep Bs Antigen Nonreactive (Nonreactive) 09/11/19 09:46 Hep Bs Antibody Nonreactive (Nonreactive) 09/11/19 11:15 Hep B Core Total Ab Nonreactive (Nonreactive) 09/11/19 11:15 Hep B Core IgM Ab Nonreactive (Nonreactive) 09/11/19 09:46 Hepatitis C Antibody Reactive (Nonreactive) H 09/11/19 09:46 Hep C Ab Signal/Cutoff 23.30 ratio (<1.00) H 09/11/19 09:46 HCV RNA (PCR) IUs/ml [id number] IU/mL H 09/11/19 11:15 HCV RNA PCR log IUs/ml 6.83 log IU/mL H 09/11/19 11:15 Hepatitis C Genotype 3 09/11/19 11:15 Assessment & Plan - Problems (Diagnosis) (1) Chronic respiratory failure with hypoxia Current Visit: No Status: Chronic (2) Pulmonary fibrosis Current Visit: No Status: Chronic (3) Pulmonary hypertension Current Visit: No Status: Chronic Plan: Acute Respiratory failure with hypoxemia secondary to pulmonary fibrosis. Slowly improving will continue patient on steroid Was on BiPAP. on oxygen supplementation Appreciate help from Dr. Akbar' Patient may need home BiPAP Social service consulted Possibly seek home once BiPAP is arranged Pulmonary edema on chest x-ray. Continue patient on Lasix. Pulmonary hypertension. Patient used to be on sildenafil before Appreciate help from cardiology and pulmonology History of atrial fibrillation. Cardiology consult Appreciated . continue patient on anticoagulation with Xarelto while stopping sotalol as patient is currently not in atrial fibrillation. Hepatitis Awaiting further recommendations from GI hepatitis panel still pending` Back pain, on p.r.n. morphine, which is chronic. Depression and anxiety, doing well on Zoloft and Xanax, continue. Swelling in the right lower extremity Will get a Doppler to rule out DVT Patient on Xarelto Awaiting further improvement in the clinical condition Discussed with case management Patient may need BiPAP at home upper caser consult for placement of BiPAP Dc home once BiPAP is arranged Discussed with Dr. Nora Morataya from pulmonary standpoint to Dc Discussed with the patient Desats on ambulation Still on 5 L nasal cannula Time Spent Managing Pts Care (In Minutes): 42
[2019-09-14] MEDS: RIVAROXABAN 20 MG TABLET PO SCH (17:23)
[2019-09-14] MEDS: ONDANSETRON 4 MG/2 ML VIAL IV PRN (22:33)
[2019-09-14] MEDS: ALPRAZOLAM 0.25 MG TABLET PO PRN (22:33)
[2019-09-15] MEDS: LEVALBUTEROL 0.63 MG/3 ML NEB NEB SCH ×2 (01:10→08:00)
[2019-09-15] MEDS: IPRATROPIUM BROM 0.5MG/2.5ML NEB SCH ×2 (01:10→08:00)
[2019-09-15] MEDS: HYDROCODONE/APAP 10/325 TAB PO PRN ×2 (04:29→09:51)
[2019-09-15 08:02] VITALS: BP 124/75; TEMP 97
[2019-09-15] MEDS: FUROSEMIDE 20 MG TABLET PO SCH (08:11)
[2019-09-15] MEDS: PANTOPRAZOLE 40MG TABLET PO SCH (08:11)
[2019-09-15] MEDS: SPIRONOLACTONE 25 MG TABLET PO SCH (08:11)
[2019-09-15] MEDS: predniSONE 10 MG TAB PO SCH (08:12)
[2019-09-15] MEDS: SERTRALINE HCL 50 MG TAB PO SCH (08:12)
[2019-09-15] MEDS: BUPROPRION HCL S.R. 150MG TAB PO SCH (08:12)
[2019-09-15] MEDS: methocarbamoL 750 MG TAB PO SCH (08:13)
[2019-09-15] MEDS: ALPRAZOLAM 0.25 MG TABLET PO PRN (08:19)
--- NOTE | 2019-09-15 09:01 | P.DS ---
Admission Date: 09/07/19 Discharge Date: 09/15/19 Disposition: ROUTINE DISCHARGE Discharge Condition: GOOD Reason for Admission: Exacerbation of pulmonary fibrosis chronic respiratory failure COPD - Problems (1) Chronic respiratory failure with hypoxia Status: Chronic (2) Pulmonary fibrosis Status: Chronic (3) Pulmonary hypertension Status: Acute Brief History of Present Illness: 64-year-old female who comes to the hospital with shortness of breath. Patient has been have some difficulty breathing. She was recently in the hospital a couple of weeks ago because she had "fluid in her lungs". She was told she had pulmonary hypertension. She has a history of pulmonary fibrosis and she has been following up at [facility] with Dr. Silviano Bettencourt ). She was on sildenafil for the pulmonary hypertension. She says she is feeling much better after being placed on BiPAP today. Her chest x- ray does have some diffuse interstitial opacities. This could be pulmonary edema. We will get an echocardiogram and we will need to get records from [facility] as well. Start her on steroids, neb treatments, and antibiotics prophylactically. We will also gently diurese her. She will continue on BiPAP support and we will get Pulmonary, Dr. Melendez to see her. Anticipating that she should improve over the next 24-48 hours to where we can wean her off of the BiPAP. She also has a history of hepatitis C. She has a referral to go see Gastroenterology for further treatment. They have considered a lung transplant in the future once her hepatitis C is scared. She is in the process of following up to get this taken care of in the near future. Hospital Course: Acute Respiratory failure with hypoxemia secondary to pulmonary fibrosis. Pulmonary edema on chest x-ray. Pulmonary hypertension. Patient used to be on sildenafil before Appreciate help from cardiology and pulmonology Atrial fibrillation. Hepatitis Back pain, chronic. Depression and anxiety, Swelling in the right lower extremity She was admitted and was started on BiPAP started on bronchodilators and is steroids pulmonology was consulted BiPAP was titrated off and the patient is right now in oxygen by nasal cannula Discussed with case management Patient may need BiPAP at home caser up consult for placement of BiPAP Patient's respiratory status was slowly improving She also had a gastroenterology and cardiology consults Discussed with Dr. Nora Morataya from pulmonary standpoint to Dc Discussed with the patient The patient is being discharged home today in a fair condition with advice to follow up with PCP in 1 week and also with Gastroenterology and pulmonology as outpatient along with cardiology. She also has an appointment with pain doctor Vital Signs/Physical Exam: Temp Pulse Resp BP Pulse Ox 97 F 85 18 124/75 91 09/15/19 08:00 09/15/19 08:11 09/15/19 08:13 09/15/19 08:11 09/15/19 08:13 General: Alert, In no apparent distress HEENT: Atraumatic, Normocephalic Neck: Supple Respiratory: Normal air movement Cardiovascular: No edema, Regular rate/rhythm Capillary refill: <2 Seconds Gastrointestinal: Soft and benign Musculoskeletal: No clubbing Integumentary: No rashes Neurological: Normal speech, Normal strength at 5/5 x4 extr Lymphatics: No axilla or inguinal lymphadenopathy External genitalia: Deferred Rectal: Deferred Laboratory Data at Discharge: WBC 10.7 K/uL (4.3-10.9) D 09/13/19 05:24 Hgb 14.5 g/dL (12.0-15.0) 09/13/19 05:24 Hct 43.3 % (36.0-45.0) 09/13/19 05:24 Plt Count 158 K/uL (152-406) 09/13/19 05:24 PT 19.2 SECONDS (9.5-12.5) H 09/08/19 04:16 INR 1.66 09/08/19 04:16 APTT 32.2 SECONDS (24.3-36.9) 09/08/19 04:16 Sodium 138 mmol/L (136-145) 09/13/19 05:24 Potassium 4.4 mmol/L (3.5-5.1) 09/13/19 05:24 BUN 19 mg/dL (7-18) H 09/13/19 05:24 Creatinine 0.81 mg/dL (0.55-1.3) 09/13/19 05:24 Glucose 186 mg/dL (74-106) H 09/13/19 05:24 Phosphorus 3.2 mg/dL (2.5-4.9) 09/08/19 04:16 Magnesium 2.0 mg/dL (1.8-2.4) 09/08/19 04:16 Total Bilirubin 0.7 mg/dL (0.2-1.0) 09/13/19 05:24 AST 103 U/L (15-37) H 09/13/19 05:24 ALT 133 U/L (12-78) H 09/13/19 05:24 Alkaline Phosphatase 104 U/L (45-117) 09/13/19 05:24 Troponin I < 0.02 ng/mL (0.0-0.045) 09/07/19 14:55 Home Medications: Albuterol Sulfate [Proair Hfa] 2 puff IN Q4HP PRN 09/07/19 Fluticasone/Umeclidin/Vilanter [Trelegy Ellipta 100-62.5-25] 2 puff IN DAILY Furosemide 80 mg PO DAILY 09/07/19 Ondansetron HCl 1 tab PO Q6HP PRN 09/07/19 Pantoprazole Sodium 40 mg PO DAILY 09/07/19 Sertraline [Zoloft*] 25 mg PO DAILY 09/07/19 buPROPion HCl [Bupropion HCl Sr] 150 mg PO DAILY 09/07/19 methocarbamoL [Methocarbamol] 750 mg PO DAILY 09/07/19 methylPREDNISolone [Methylpred Dp] 4 mg PO DAILY 09/07/19 predniSONE [Prednisone] 10 mg PO DAILY 09/07/19 Spironolactone [Aldactone*] 25 mg PO BID #60 tab 09/13/19 ALPRAZolam [Xanax*] 0.25 mg PO BEDTIME PRN PRN #10 tab 09/15/19 Furosemide [Lasix*] 20 mg PO DAILY #30 tab 09/15/19 Guaif/Dm [Robitussin Dm*] 5 ml PO Q6H PRN 7 Days ucup 09/15/19 Hydrocodone Bit/Acetaminophen [Hydrocodon-Acetaminophn 10-325] 1 tab PO Q8HP PRN #14 tablet 09/15/19 Meloxicam 15 mg PO DAILY #15 tablet 09/15/19 New Medications: ALPRAZolam [Xanax*] 0.25 mg PO BEDTIME PRN PRN #10 tab PRN Reason: Insomnia Furosemide [Lasix*] 20 mg PO DAILY #30 tab Guaif/Dm [Robitussin Dm*] 5 ml PO Q6H PRN 7 Days ucup PRN Reason: Cough Hydrocodone Bit/Acetaminophen [Hydrocodon-Acetaminophn 10-325] 1 tab PO Q8HP PRN #14 tablet PRN Reason: Pain Scale 5-7 (Moderate) Meloxicam 15 mg PO DAILY #15 tablet Spironolactone [Aldactone*] 25 mg PO BID #60 tab Patient Discharge Instructions: Patient to continue with Lasix take prednisone 10 mg twice a day for 2 weeks then 10 mg once a day continue using spironolactone restrict fluid to 1200 cc a day follow up with me next week Diet: Regular Activity: Ad montserrat Followup: Isidoro Akbar MD [ACTIVE - CAN ADMIT] - (Please call to make an appointment. ) Time spent managing pt's care (in minutes): 39
[2019-09-15 10:26] VITALS: O2SAT 96
[2019-09-15 15:27] LABS: Hep C Virus RNA (PCR)log 6.84 log IU/mL
== END 2019-09-15 10:58 | disposition home health service (06) | DRG 189 ==
LOC: ER 02:06 → 4TH 05:13 → 3RD-ICU 09:11 → 2ND 09-09 10:57 → 4TH 09-13 17:43
PROVIDERS: ADMIT Hospitalist; ATTEND Internal Medicine
PROC: 5A09557 Assistance with Respiratory Ventilation, Greater than 96 Consecutive Hours, Continuous Positive Airway Pressure (ICD-10-PCS; principal; 2019-09-07)
DX: J96.21 Acute and chronic respiratory failure with hypoxia (principal); J81.1 Chronic pulmonary edema; J44.1 Chronic obstructive pulmonary disease with (acute) exacerbation; B17.9 Acute viral hepatitis, unspecified; I27.20 Pulmonary hypertension, unspecified; J84.10 Pulmonary fibrosis, unspecified; B19.20 Unspecified viral hepatitis C without hepatic coma; D72.829 Elevated white blood cell count, unspecified; F41.8 Other specified anxiety disorders; M54.9 Dorsalgia, unspecified; I48.91 Unspecified atrial fibrillation; M79.89 Other specified soft tissue disorders
CPT/HCPCS: 36415; 71045; 76700; 80048; 80053; 80074; 80076; 80162; 80307; 81003; 81015; 81025; 82103; 82390; 82728; 82805; 82947; 83540; 83735; 83880; 84100; 84466; 84484; 85025; 85379; 85610; 85730; 86038; 86255; 86704; 86706; 87040; 87086; 87088; 87520; 87522; 87804; 93005; 93306; 93971; 94640; 94660; 94760; 96365; 96366; 96375; 97116; 97161; 97530; 99285; J0456; J0696; J1940; J2270; J2405; J2920; J2930; J3475; J7030; J7512